=== PATIENT | female | born 1980 | race Caucasian/White ===

== ENCOUNTER 2016-10-28 14:33 | Emergency (ER) | payer MEDICARE, OTHER ==
[~2016-10-28] VITALS: Wt 99.8 kg
[~2016-10-28 14:33] MED LIST: ACETAMINOPHEN-O1 TAB PO; ACYCLOVIR800 MG PO; ALPRAZOLAM2 MG PO; AMBIEN10 M1 PO; AMITRIPTYLINE25 MG PO; ANAPROX DS550 MG PO; B12,B-12,B 12500 MC1 PO; BACTRIM DS 8001 TA1 PO; BACTRIM DS 8001 TAB PO; BACTROBAN OINT22 GM PO; BUSPAR5 MG PO; CELEXA10 MG PO; CELEXA40 MG PO; CEPHALEXIN500 M1 PO; CIPROFLOXACIN500 MG PO; CLARITIN10 MG PO; CLEOCIN HCL150 MG PO; CLEOCIN150 MG PO; CLINDAMYCIN HC300 MG PO; CLINDAMYCIN150 MG PO; CYCLOBENZAPRINE10 MG PO; DARVOCET N 1001 TAB PO; DAYPRO600 M1 PO; FANAPT12 MG PO; FIORICET 325 MG1 TAB PO; FLEXERIL10 MG PO; FLEXERIL5 MG PO; FLONASE ALLERG9.9 ML NAS; FLONASE ALLERG9.9 ML NS; Fioricet 325 MG1 TAB PO; HYCODAN/HYDROMET5 ML PO; HYDROCODONE BIT1 T11 PO; IMITREX50 MG PO; IMITREX50 MG SC; K-Lor 20MEQ20 MEQ PO; LAMICTAL200 MG PO; LAMICTAL25 MG PO; LASIX40 MG PO; LEVOFLOXACIN500 MG PO; LOMOTIL 0.025 M1 TAB PO; MEDROL DOSEPAK4 MG PO; MIGRAINE MEDICINE PO; MOTRIN800 MG PO; Motrin,Rufen800 MG PO; NAPROSYN500 MG PO; NEURONTIN300 MG PO; NEXIUM40 MG PO; OXYCODONE5 MG PO; PANTOPRAZOLE SO40 MG PO; PERCOCET 325 MG1 TA2 PO; PERCOCET 325 MG1 TA5 PO; PERCOGESIC EXTR1 TAB PO; PERIDEX 480 ML480 ML PO; PHENERGAN25 M1 PO; PHENERGAN25 M3 PO; PHENERGAN25 MG RC; PREDNISONE10 MG PO; PREDNISONE20 MG PO; PRISTIQ100 MG PO; PRISTIQ50 MG PO; PROVENTIL0.09 MG/A1 INH; Percocet 325 MG1 TAB PO; Peridex 473 ML473 ML PO; REXULTI2 MG PO; ROBITUSSIN AC 110 ML PO; SEPTRA DS 800 M1 TAB PO; Synthroid,Levo75 MCG PO; TOPAMAX100 M1 PO; TOPAMAX100 MG PO; TOPAMAX200 MG PO; TORADOL10 MG PO; ULTRAM50 MG PO; VIBRAMYCIN100 MG PO; VICODIN 5/500 505 MG PO; VIIBRYD40 PO; VOLTAREN50 M1 PO; XANAX2 M1 PO; XANAX2 MG PO; ZANAFLEX4 MG PO; ZITHROMAX Z PA250 MG PO; ZITHROMAX250 MG PO; ZOFRAN ODT4 MG SL; ZOFRAN4 MG PO; ZYRTEC10 MG PO; [UNRECOGNIZED DRUG - CODE] PO; [UNRECOGNIZED DRUG - OTHER] PO
[2016-10-28 14:46] VITALS: BP 130/79
== END 2016-10-28 17:25 | disposition home or self-care (01) ==
LOC: ED 14:33
DX: S00.83XA Contusion of other part of head, initial encounter (principal); Z88.1 Allergy status to other antibiotic agents; Z88.8 Allergy status to other drugs, medicaments and biological substances; Z90.49 Acquired absence of other specified parts of digestive tract; Z79.899 Other long term (current) drug therapy

== ENCOUNTER 2017-05-30 12:48 | Emergency (ER) | payer MEDICARE ==
[~2017-05-30] VITALS: Wt 122.5 kg
[2017-05-30 12:50] VITALS: BP 140/92
[2017-05-30 14:10] LABS: BASO % 0.6 % (0.0-1.0); EOS # 0.1 10*3/uL (0.0-0.4); EOS % 1.5 % (1.0-4.0); HEMATOCRIT 42.4 % (37.0-47.0); HEMOGLOBIN 14.3 g/dl (12.0-16.0); LYMPH # 1.8 10*3/uL (1.3-4.4); MEAN CELL VOLUME 87.8 fl (81.0-99.0); MEAN CORPUSCULAR HGB 29.6 pg (27.0-31.0); MEAN CORPUSCULAR HGB CONC 33.7 g/dl (33.0-37.0); MONO # 0.2 10*3/uL (0.1-1.0); MONO % 4.9 % (3.0-9.0); NEUT # 2.6 10*3/uL (2.3-7.9); NEUT % 54.8 % (47.0-73.0); PLATELET COUNT AUTOMATED 200 10*3/uL (130-400); RED BLOOD COUNT 4.83 10*6/uL (4.10-5.10); RED CELL DISTRI WIDTH 12.3 % (0-14.5); WHITE BLOOD COUNT 4.7 10*3/uL (4.8-10.8)
[2017-05-30 14:25] LABS: ALBUMIN 3.5 gm/dl (3.1-4.5); ALKALINE PHOSPHATASE 45 U/L (45-117); BUN 7 mg/dl (7-24); CHLORIDE 107 mmol/L (98-107); CREATININE 0.71 mg/dL (0.55-1.02); SGOT/AST 15 IU/L (3-35); SGPT/ALT 19 U/L (12-78); SODIUM 141 mmol/L (136-145); TOTAL PROTEIN 7.2 gm/dL (6.4-8.2)
[2017-05-30 14:26] LABS: BILIRUBIN NEGATIVE (NEGATIVE); BLOOD 3+ (NEGATIVE); CLARITY SL CLOUDY (CLEAR); COLOR YELLOW (YELLOW); GLUCOSE NEGATIVE (NEGATIVE); KETONE NEGATIVE (NEGATIVE); LEUKO ESTERASE TRACE (NEGATIVE); NITRITE NEGATIVE (NEGATIVE); PH 5.5 (5.0-9.0); SPECIFIC GRAVITY 1.015 (1.005-1.030); UROBILINOGEN 0.2 E.U./dl (0.2-1.0)
[2017-05-30 14:36] LABS: BACTERIA TRACE
== END 2017-05-30 17:00 | disposition home or self-care (01) ==
LOC: ED 12:48
PROVIDERS: Emergency Medicine
DX: O20.0 Threatened abortion (principal); G89.29 Other chronic pain; I10 Essential (primary) hypertension; E03.9 Hypothyroidism, unspecified; Z86.718 Personal history of other venous thrombosis and embolism; Z88.1 Allergy status to other antibiotic agents; Z88.4 Allergy status to anesthetic agent; Z88.8 Allergy status to other drugs, medicaments and biological substances; Z79.899 Other long term (current) drug therapy; Z3A.08 8 weeks gestation of pregnancy; Z90.49 Acquired absence of other specified parts of digestive tract; Z98.890 Other specified postprocedural states

== ENCOUNTER 2017-06-08 11:02 | Emergency (ER) | payer MEDICARE ==
[~2017-06-08] VITALS: Ht 157.4 cm; Wt 108.9 kg
[2017-06-08 11:14] VITALS: BP 134/98
[2017-06-08] MEDS ORDERED: PREDNISONE10 MG PO (11:40)
[2017-06-08] MEDS ORDERED: CLARITIN10 MG PO (11:40)
[2017-06-08] MEDS ORDERED: FLONASE ALLERG9.9 ML NAS (11:40)
[2017-06-08] MEDS ORDERED: ROBITUSSIN DM 105 ML PO (11:40)
== END 2017-06-08 13:05 | disposition home or self-care (01) ==
LOC: ED 11:02
DX: O26.899 Other specified pregnancy related conditions, unspecified trimester (principal); B34.9 Viral infection, unspecified; I10 Essential (primary) hypertension; E03.9 Hypothyroidism, unspecified; Z88.1 Allergy status to other antibiotic agents; Z88.8 Allergy status to other drugs, medicaments and biological substances; Z79.899 Other long term (current) drug therapy; Z86.718 Personal history of other venous thrombosis and embolism

== ENCOUNTER 2017-12-12 17:30 | Emergency (ER) | payer OTHER ==
[~2017-12-12] VITALS: Wt 122.5 kg
[~2017-12-12 17:30] MED LIST changes: +ROBITUSSIN DM 105 ML PO
[2017-12-12 18:21] LABS: BASO % 0.5 % (0.0-1.0); EOS # 0.2 10*3/uL (0.0-0.4); EOS % 2.6 % (1.0-4.0); HEMATOCRIT 41.3 % (37.0-47.0); HEMOGLOBIN 13.9 g/dl (12.0-16.0); LYMPH # 2.3 10*3/uL (1.3-4.4); LYMPH % 37.6 % (27.0-41.0); MEAN CELL VOLUME 84.8 fl (81.0-99.0); MEAN CORPUSCULAR HGB 28.5 pg (27.0-31.0); MEAN CORPUSCULAR HGB CONC 33.7 g/dl (33.0-37.0); MEAN PLATELET VOLUME 10.2 fl (9.6-12.3); MONO # 0.4 10*3/uL (0.1-1.0); MONO % 5.9 % (3.0-9.0); NEUT # 3.3 10*3/uL (2.3-7.9); NEUT % 52.9 % (47.0-73.0); PLATELET COUNT AUTOMATED 244 10*3/uL (130-400); RED BLOOD COUNT 4.87 10*6/uL (4.10-5.10); RED CELL DISTRI WIDTH 12.5 % (0-14.5); WHITE BLOOD COUNT 6.1 10*3/uL (4.8-10.8)
[2017-12-12 18:38] LABS: ALBUMIN 3.6 gm/dl (3.1-4.5); ALKALINE PHOSPHATASE 83 U/L (45-117); BUN 9 mg/dl (7-24); CHLORIDE 112 mmol/L (98-107); CREATININE 1.03 mg/dL (0.55-1.02); POTASSIUM 3.9 mmol/L (3.5-5.1); SGOT/AST 19 IU/L (3-35); SGPT/ALT 23 U/L (12-78); SODIUM 142 mmol/L (136-145); TOTAL PROTEIN 7.3 gm/dL (6.4-8.2)
[2017-12-12 18:43] LABS: BETA-HCG, QUANT < 1.0 mIU/mL (1-3)
[2017-12-12 19:55] VITALS: BP 146/70
== END 2017-12-12 20:54 | disposition home or self-care (01) ==
LOC: ED 17:30
PROVIDERS: Emergency Medicine
DX: M54.12 Radiculopathy, cervical region (principal); I10 Essential (primary) hypertension; E03.9 Hypothyroidism, unspecified; Z88.1 Allergy status to other antibiotic agents; Z88.6 Allergy status to analgesic agent; Z88.8 Allergy status to other drugs, medicaments and biological substances; Z79.899 Other long term (current) drug therapy; Z86.718 Personal history of other venous thrombosis and embolism

== ENCOUNTER 2018-01-12 10:56 | Emergency (ER) | payer OTHER ==
[~2018-01-12] VITALS: Ht 157.4 cm; Wt 122.5 kg
[2018-01-12 12:01] LABS: BASO % 0.4 % (0.0-1.0); EOS # 0.1 10*3/uL (0.0-0.4); EOS % 1.8 % (1.0-4.0); HEMATOCRIT 45.9 % (37.0-47.0); HEMOGLOBIN 15.6 g/dl (12.0-16.0); LYMPH # 2.1 10*3/uL (1.3-4.4); LYMPH % 30.8 % (27.0-41.0); MEAN CELL VOLUME 84.5 fl (81.0-99.0); MEAN CORPUSCULAR HGB 28.7 pg (27.0-31.0); MEAN PLATELET VOLUME 10.8 fl (9.6-12.3); MONO # 0.4 10*3/uL (0.1-1.0); MONO % 5.7 % (3.0-9.0); NEUT # 4.1 10*3/uL (2.3-7.9); PLATELET COUNT AUTOMATED 272 10*3/uL (130-400); RED BLOOD COUNT 5.43 10*6/uL (4.10-5.10); RED CELL DISTRI WIDTH 12.4 % (0-14.5); WHITE BLOOD COUNT 6.7 10*3/uL (4.8-10.8)
[2018-01-12 13:11] LABS: ALBUMIN 3.6 gm/dl (3.1-4.5); ALKALINE PHOSPHATASE 149 U/L (45-117); BUN 10 mg/dl (7-24); CHLORIDE 105 mmol/L (98-107); CREATININE 0.78 mg/dL (0.55-1.02); LIPASE 89 U/L (73-393); POTASSIUM 3.7 mmol/L (3.5-5.1); SGOT/AST 28 IU/L (3-35); SGPT/ALT 34 U/L (12-78); SODIUM 139 mmol/L (136-145); TOTAL PROTEIN 7.6 gm/dL (6.4-8.2)
[2018-01-12 13:28] VITALS: BP 153/99
[2018-01-12 13:28] LABS: BILIRUBIN 2+ (NEGATIVE); BLOOD NEGATIVE (NEGATIVE); CLARITY CLOUDY (CLEAR); COLOR YELLOW (YELLOW); GLUCOSE NEGATIVE (NEGATIVE); KETONE 1+ (NEGATIVE); LEUKO ESTERASE NEGATIVE (NEGATIVE); NITRITE NEGATIVE (NEGATIVE); SPECIFIC GRAVITY 1.025 (1.005-1.030); UROBILINOGEN 0.2 E.U./dl (0.2-1.0)
[2018-01-12 13:44] LABS: BACTERIA 3+; EPITHELIAL CELLS 20-30
== END 2018-01-12 14:15 | disposition home or self-care (01) ==
LOC: ED 10:56
PROVIDERS: Physician Assistant
DX: R53.83 Other fatigue (principal); R11.2 Nausea with vomiting, unspecified; Z90.49 Acquired absence of other specified parts of digestive tract; Z98.890 Other specified postprocedural states; Z79.899 Other long term (current) drug therapy; Z88.1 Allergy status to other antibiotic agents; Z88.8 Allergy status to other drugs, medicaments and biological substances

== ENCOUNTER 2018-04-17 17:59 | Emergency (ER) | payer OTHER ==
[~2018-04-17] VITALS: Ht 157.4 cm; Wt 126.1 kg
[~2018-04-17 17:59] MED LIST changes: +MIRALAX17 GM PO
[2018-04-17 18:19] VITALS: BP 156/88
[2018-04-17 18:58] LABS: BASO % 0.5 % (0.0-1.0); EOS # 0.2 10*3/uL (0.0-0.4); EOS % 3.8 % (1.0-4.0); HEMATOCRIT 39.5 % (37.0-47.0); HEMOGLOBIN 13.1 g/dl (12.0-16.0); LYMPH # 2.2 10*3/uL (1.3-4.4); LYMPH % 40.1 % (27.0-41.0); MEAN CELL VOLUME 87.6 fl (81.0-99.0); MEAN CORPUSCULAR HGB CONC 33.2 g/dl (33.0-37.0); MEAN PLATELET VOLUME 10.1 fl (9.6-12.3); MONO # 0.3 10*3/uL (0.1-1.0); MONO % 5.2 % (3.0-9.0); NEUT # 2.8 10*3/uL (2.3-7.9); NEUT % 50.2 % (47.0-73.0); PLATELET COUNT AUTOMATED 227 10*3/uL (130-400); RED BLOOD COUNT 4.51 10*6/uL (4.10-5.10); RED CELL DISTRI WIDTH 12.9 % (0-14.5); WHITE BLOOD COUNT 5.5 10*3/uL (4.8-10.8)
[2018-04-17 19:12] LABS: ALBUMIN 3.6 gm/dl (3.1-4.5); ALKALINE PHOSPHATASE 399 U/L (45-117); BUN 7 mg/dl (7-24); CHLORIDE 106 mmol/L (98-107); CREATININE 0.76 mg/dL (0.55-1.02); POTASSIUM 3.5 mmol/L (3.5-5.1); SGOT/AST 51 IU/L (3-35); SGPT/ALT 81 U/L (12-78); SODIUM 142 mmol/L (136-145); TOTAL PROTEIN 7.6 gm/dL (6.4-8.2)
[2018-04-17] MEDS ORDERED: SEPTDS PO (19:32)
== END 2018-04-17 19:39 | disposition home or self-care (01) ==
LOC: ED 17:59
PROVIDERS: Nurse Practitioner Family
DX: S31.109A Unspecified open wound of abdominal wall, unspecified quadrant without penetration into peritoneal cavity, initial encounter (principal); R21 Rash and other nonspecific skin eruption; Z88.1 Allergy status to other antibiotic agents; Z88.8 Allergy status to other drugs, medicaments and biological substances; Z79.899 Other long term (current) drug therapy; Z90.49 Acquired absence of other specified parts of digestive tract; X58.XXXA Exposure to other specified factors, initial encounter; Y93.89 Activity, other specified; Y92.89 Other specified places as the place of occurrence of the external cause; Y99.8 Other external cause status

== ENCOUNTER 2018-05-01 14:15 | Emergency (ER) | payer OTHER ==
[~2018-05-01] VITALS: Ht 157.4 cm; Wt 122.5 kg
[~2018-05-01 14:15] MED LIST changes: +SEPTDS PO
[2018-05-01 15:12] LABS: BASO % 0.5 % (0.0-1.0); EOS % 0.5 % (1.0-4.0); HEMATOCRIT 46.9 % (37.0-47.0); HEMOGLOBIN 16.3 g/dl (12.0-16.0); LYMPH # 2.3 10*3/uL (1.3-4.4); LYMPH % 29.9 % (27.0-41.0); MEAN CORPUSCULAR HGB 28.5 pg (27.0-31.0); MEAN CORPUSCULAR HGB CONC 34.8 g/dl (33.0-37.0); MEAN PLATELET VOLUME 10.1 fl (9.6-12.3); MONO # 0.4 10*3/uL (0.1-1.0); MONO % 5.6 % (3.0-9.0); NEUT # 4.8 10*3/uL (2.3-7.9); NEUT % 63.1 % (47.0-73.0); PLATELET COUNT AUTOMATED 289 10*3/uL (130-400); RED BLOOD COUNT 5.72 10*6/uL (4.10-5.10); RED CELL DISTRI WIDTH 12.6 % (0-14.5); WHITE BLOOD COUNT 7.6 10*3/uL (4.8-10.8)
[2018-05-01 15:31] LABS: ALBUMIN 4.1 gm/dl (3.1-4.5); ALKALINE PHOSPHATASE 164 U/L (45-117); BUN 10 mg/dl (7-24); CHLORIDE 106 mmol/L (98-107); CREATININE 0.71 mg/dL (0.55-1.02); LIPASE 103 U/L (73-393); POTASSIUM 3.3 mmol/L (3.5-5.1); SGOT/AST 26 IU/L (3-35); SGPT/ALT 28 U/L (12-78); SODIUM 139 mmol/L (136-145); TOTAL PROTEIN 8.3 gm/dL (6.4-8.2)
[2018-05-01 16:20] VITALS: BP 150/92
[2018-05-01] MEDS ORDERED: ZOFRAN ODT4 MG SL (17:59)
== END 2018-05-01 18:11 | disposition home or self-care (01) ==
LOC: ED 14:15
PROVIDERS: Nurse Practitioner Family
DX: K31.84 Gastroparesis (principal); I10 Essential (primary) hypertension; E03.9 Hypothyroidism, unspecified; Z88.1 Allergy status to other antibiotic agents; Z88.8 Allergy status to other drugs, medicaments and biological substances; Z79.899 Other long term (current) drug therapy; Z86.718 Personal history of other venous thrombosis and embolism; Z90.49 Acquired absence of other specified parts of digestive tract; Z90.89 Acquired absence of other organs

== ENCOUNTER 2018-07-31 13:38 | Emergency (ER) | payer OTHER ==
[~2018-07-31] VITALS: Ht 157.4 cm; Wt 108.9 kg
[2018-07-31] MEDS ORDERED: ZOFRAN4 MG PO (14:18)
[2018-07-31 14:26] LABS: BASO % 0.4 % (0.0-1.0); EOS % 0.3 % (1.0-4.0); HEMOGLOBIN 14.7 g/dl (12.0-16.0); LYMPH # 1.8 10*3/uL (1.3-4.4); LYMPH % 23.5 % (27.0-41.0); MEAN CELL VOLUME 86.1 fl (81.0-99.0); MEAN CORPUSCULAR HGB 28.8 pg (27.0-31.0); MEAN CORPUSCULAR HGB CONC 33.4 g/dl (33.0-37.0); MEAN PLATELET VOLUME 10.1 fl (9.6-12.3); MONO # 0.3 10*3/uL (0.1-1.0); MONO % 4.2 % (3.0-9.0); NEUT # 5.5 10*3/uL (2.3-7.9); NEUT % 71.2 % (47.0-73.0); PLATELET COUNT AUTOMATED 271 10*3/uL (130-400); RED BLOOD COUNT 5.11 10*6/uL (4.10-5.10); RED CELL DISTRI WIDTH 12.3 % (0-14.5); WHITE BLOOD COUNT 7.7 10*3/uL (4.8-10.8)
[2018-07-31 14:45] LABS: ALBUMIN 3.8 gm/dl (3.1-4.5); ALKALINE PHOSPHATASE 67 U/L (45-117); BUN 6 mg/dl (7-24); CHLORIDE 108 mmol/L (98-107); CREATININE 0.87 mg/dL (0.55-1.02); LIPASE 52 U/L (73-393); POTASSIUM 3.5 mmol/L (3.5-5.1); SGOT/AST 15 IU/L (3-35); SGPT/ALT 18 U/L (12-78); SODIUM 142 mmol/L (136-145); TOTAL PROTEIN 7.8 gm/dL (6.4-8.2)
[2018-07-31 15:27] VITALS: BP 128/83
[2018-08-01] MEDS ORDERED: 'CLONIDINE0.1 MG PO (12:10)
[2018-08-09] MEDS ORDERED: REGLAN5 MG PO (09:52)
[2018-08-09] MEDS ORDERED: CARAFATE1 G1 PO (09:53)
[2018-08-09] MEDS ORDERED: GAVISCON ES TA1 EACH PO (09:53)
== END 2018-07-31 15:38 | disposition home or self-care (01) ==
LOC: ED 13:38
PROVIDERS: Nurse Practitioner Family
DX: R10.84 Generalized abdominal pain (principal); R11.2 Nausea with vomiting, unspecified; I10 Essential (primary) hypertension; E03.9 Hypothyroidism, unspecified; Z88.1 Allergy status to other antibiotic agents; Z88.8 Allergy status to other drugs, medicaments and biological substances; Z79.899 Other long term (current) drug therapy; Z86.718 Personal history of other venous thrombosis and embolism

== ENCOUNTER 2018-08-01 08:41 | Inpatient (IN) | payer OTHER ==
[2018-08-01] VITALS (10 sets, daily range): BP systolic 166–212; BP diastolic 97–114
[~2018-08-01] VITALS: Ht 157.5 cm; Wt 117.1 kg
--- NOTE | ~2018-08-01 | EKG ---
[place], [place] ELECTROCARDIOGRAM REPORT NAME: ANGELINA LAKHANI UNIT #: [id number] ROOM: 407 DOCTOR: MICHAEL DRAFT REPORT BIRTHDATE: [birth year] [facility] Test Date: 2018-08-01 Test Time: 09:32:29 Pat Name: ANGELINA LAKHANI Department: Room: 407 1 Gender: F Obstetrics Specialist: 14 : 1980 Requested By: TATYANA ROJAS Order Number: [id number] Reading MD: Ariel Ramachandran MD Measurements Intervals [place] Rate: 64 P: 22 OK: 135 QRS: 0 QRSD: 83 T: 11 QT: 480 QTc: 496 Interpretive Statements Sinus rhythm LVH by voltage Borderline prolonged QT interval Compared to ECG 03/31/2018 16:22:29 No significant changes Electronically Signed On 08-02-2018 9:28:51 PST by Ariel Ramachandran MD CM:EKGRPT:ELECTROCARDIOGRAM REPORT 1 7 TATYANA HANKS DRAFT REPORT TATYANA ROJAS DO
[2018-08-01 09:55] LABS: BASO % 0.4 % (0.0-1.0); HEMATOCRIT 45.6 % (37.0-47.0); HEMOGLOBIN 15.4 g/dl (12.0-16.0); LYMPH # 2.5 10*3/uL (1.3-4.4); LYMPH % 24.9 % (27.0-41.0); MEAN CELL VOLUME 85.9 fl (81.0-99.0); MEAN CORPUSCULAR HGB CONC 33.8 g/dl (33.0-37.0); MEAN PLATELET VOLUME 10.6 fl (9.6-12.3); MONO # 0.5 10*3/uL (0.1-1.0); MONO % 4.7 % (3.0-9.0); NEUT # 6.9 10*3/uL (2.3-7.9); NEUT % 69.7 % (47.0-73.0); PLATELET COUNT AUTOMATED 293 10*3/uL (130-400); RED BLOOD COUNT 5.31 10*6/uL (4.10-5.10); RED CELL DISTRI WIDTH 12.6 % (0-14.5); WHITE BLOOD COUNT 9.9 10*3/uL (4.8-10.8)
[2018-08-01 10:04] LABS: ACT PARTIAL THROMBO TIME 23.5 SECONDS (20.8-31.5); INTERNATIONAL NORM RATIO 1.1 (2.0-3.5)
[2018-08-01 10:13] LABS: ALKALINE PHOSPHATASE 64 U/L (45-117); BUN 10 mg/dl (7-24); CHLORIDE 106 mmol/L (98-107); CREATININE 1.33 mg/dL (0.55-1.02); LIPASE 45 U/L (73-393); SGOT/AST 17 IU/L (3-35); SGPT/ALT 19 U/L (12-78); SODIUM 141 mmol/L (136-145); TOTAL PROTEIN 8.1 gm/dL (6.4-8.2); TROPONIN I < 0.015 ng/ml (<0.045)
--- NOTE | 2018-08-01 11:40 | NUR ---
A 37, admitted to , under the services of ANDRÉS Frazier DO with a diagnosis of hypertensive emergency. Chief complaint is nausea and vomiting for 4 days. Seen in ED yesterday and sent home on zofran. She stated it had not been helping and she has been vomiting bright red blood today. she has epigastric pain, no diarrhea. Blood pressure is high and hasn't taken her medications in several days.. Patient arrived via wheel chair from ER. Monitor applied. Initial assessment completed. Vital signs taken and recorded. ANDRÉS FRAZIER DO notified of admission to the unit. Orders received. See assessment for past medical history, medications and allergies. Patient and/or family oriented to unit. [facility] visitation policy reviewed. Clothing/patient valuable form completed. LILLIAN BLAIR
[2018-08-01 11:55] LABS: BETA-HCG, QUANT < 1.0 mIU/mL (1-3)
[2018-08-01] MEDS ORDERED: 'CLONIDINE0.1 MG PO (12:10)
--- NOTE | 2018-08-01 12:43 | NUR ---
NOTIFIED DR PARIS OF CONSULT. ORDER OBTAINED FOR IV POTASSIUM.
--- NOTE | 2018-08-01 12:54 | NUR ---
NORCO GIVEN FOR 9 OUT OF 10 STOMACH PAIN. ZOFRAN GIVEN FOR COMPLAINTS OF NAUSEA. WILL CONTINUE TO MONITOR AND REASSESS.
--- NOTE | 2018-08-01 13:30 | NUR ---
NORCO EFFECTIVE FOR ABDOMINAL PAIN. NOW 4 OUT OF 10. WILL CONTINUE TO MONITOR. ZOFRAN EFFECTIVE FOR NAUSEA AT THIS TIME. WILL CONTINUE TO MONITOR.
--- NOTE | 2018-08-01 17:17 | NUR ---
NORCO GIVEN FOR 8 OUT OF TEN PAIN IN HEAD. WILL ASSESS EFFECTIVENESS.
--- NOTE | 2018-08-01 18:00 | NUR ---
NORCO EFFECTIVE FOR HEADACHE. PT STATES PAIN IS 6 OUT OF 10 NOW. WILL CONTINUE TO ASSESS.
[2018-08-02] VITALS (7 sets, daily range): BP systolic 130–190; BP diastolic 61–132
[2018-08-02 06:21] LABS: BASO % 0.4 % (0.0-1.0); EOS # 0.1 10*3/uL (0.0-0.4); EOS % 0.5 % (1.0-4.0); HEMATOCRIT 44.1 % (37.0-47.0); HEMOGLOBIN 14.9 g/dl (12.0-16.0); LYMPH # 3.3 10*3/uL (1.3-4.4); LYMPH % 34.3 % (27.0-41.0); MEAN CELL VOLUME 85.8 fl (81.0-99.0); MEAN CORPUSCULAR HGB CONC 33.8 g/dl (33.0-37.0); MEAN PLATELET VOLUME 10.3 fl (9.6-12.3); MONO # 0.5 10*3/uL (0.1-1.0); MONO % 5.3 % (3.0-9.0); NEUT # 5.7 10*3/uL (2.3-7.9); NEUT % 59.3 % (47.0-73.0); PLATELET COUNT AUTOMATED 271 10*3/uL (130-400); RED BLOOD COUNT 5.14 10*6/uL (4.10-5.10); RED CELL DISTRI WIDTH 12.3 % (0-14.5); WHITE BLOOD COUNT 9.6 10*3/uL (4.8-10.8)
[2018-08-02 06:30] LABS: ALBUMIN 3.2 gm/dl (3.1-4.5); ALKALINE PHOSPHATASE 56 U/L (45-117); BUN 7 mg/dl (7-24); CHLORIDE 106 mmol/L (98-107); CHOLESTEROL 217 mg/dL (<200); CREATININE 0.69 mg/dL (0.55-1.02); FREE T4 1.03 ng/dl (0.76-1.46); HDL CHOLESTEROL 75 mg/dl (40-60); LDL CHOLESTEROL 125 mg/dL (9-159); PHOSPHOROUS 2.6 mg/dL (2.5-4.9); POTASSIUM 3.5 mmol/L (3.5-5.1); SGPT/ALT 17 U/L (12-78); SODIUM 137 mmol/L (136-145); TOTAL PROTEIN 7.2 gm/dL (6.4-8.2); TRIGLYCERIDES 87 mg/dl (<150); VLDL CHOLESTEROL 17 mg/dL (6-40)
[2018-08-02 06:31] LABS: SGOT/AST 16 IU/L (3-35)
[2018-08-02 07:47] LABS: VITAMIN D, 25-HYDROXY 17.1 ng/mL (30-100)
--- NOTE | 2018-08-02 08:41 | NUR ---
[place] given per patient request for abdominal pain and zofran given for c/o nauseated.
--- NOTE | 2018-08-02 09:00 | NUR ---
Branch Coordinator in to talk to patient. Patient states lives at home with family. There are few steps in the home. Physician: emily Pharmacy: [facility] Home health services: none Patient's level of ADLs: INDEPENDENT Patient has working utilities: all working DME: none Follow-up physician's appointment after d/c: will be made by hospitalist nurse director upon discharge Does patient want to access PORTAL?: no Discharge plan discussed with patient, patient lives at home, she is independent in adls and ambulation, patient states she will be going home when able and denies any home needs. DOROTEO DEWITT
--- NOTE | 2018-08-02 09:08 | NUR ---
Face to face encounter with Dr. Pulido to notify him of patients elevated blood pressure. Will follow up, see vitals.
--- NOTE | 2018-08-02 09:15 | NUR ---
Berta effective and patient states shlomo helped.
--- NOTE | 2018-08-02 10:15 | NUR ---
SONA DB=[id number], PT NURSE CHARLI-RN INFORMED.
--- NOTE | 2018-08-02 11:46 | NUR ---
Notified Dr. Pulido of patients blood pressure. See vitals.
--- NOTE | 2018-08-02 14:20 | NUR ---
Spoke with Dr. Pulido regarding elevated blood pressure. See new orders.
--- NOTE | 2018-08-02 15:33 | NUR ---
[place] given per patient request for abdominal pain and zofran given for c/o nausea. Will monitor.
--- NOTE | 2018-08-02 16:15 | NUR ---
[place] effective. "Zofran helps a little" states patient.
--- NOTE | 2018-08-02 17:38 | NUR ---
Spoke with Dr. Pulido regarding patients blood pressure. See vitals.
--- NOTE | 2018-08-02 18:20 | NUR ---
Notified Dr. Pulido that I aknowledged the order to d/c fluids but it actually didn't take place until 1814.
--- NOTE | 2018-08-02 18:43 | NUR ---
Called Dr. Pulido because patient came to me and said "I get nauseated everytime I eat." Per Dr. Pulido contact Dr. Easley.
--- NOTE | 2018-08-02 18:54 | NUR ---
Left a message with Dr. Easley to return call to
--- NOTE | 2018-08-02 22:20 | NUR ---
PATIENT MEDICATED WITH ZOFRAN, RESTORIL AND NORCO PER PRN ORDER FOR C/O NAUSEA, INSOMNIA AND PAIN. SEE EMAR. REINFORCED USE OF CALL LIGHT.
[2018-08-03] VITALS: BP 119/53
--- NOTE | 2018-08-03 01:00 | NUR ---
PATIENT RESTING QUIETLY. NO FURTHER C/O VOICED.
--- NOTE | 2018-08-03 01:20 | NUR ---
24 HR chart check completed.
--- NOTE | 2018-08-03 06:14 | NUR ---
RETURNED CALL. NOTIFIED DR. PARIS OF REASON DR. DODD WANTED HIM CALLED .
[2018-08-03 07:35] LABS: ALBUMIN 3.7 gm/dl (3.1-4.5); BUN 7 mg/dl (7-24); CHLORIDE 105 mmol/L (98-107); POTASSIUM 3.4 mmol/L (3.5-5.1); SGOT/AST 17 IU/L (3-35); SGPT/ALT 21 U/L (12-78); SODIUM 139 mmol/L (136-145)
[2018-08-03 07:36] LABS: ALKALINE PHOSPHATASE 56 U/L (45-117); TOTAL PROTEIN 7.6 gm/dL (6.4-8.2)
[2018-08-03 08:44] VITALS: BP 126/82
--- NOTE | 2018-08-03 08:56 | NUR ---
Awake and alert. Medicated for pain and nausea.
--- NOTE | 2018-08-03 09:00 | NUR ---
case management visits with patient, patient will be going home when able, patient denies any home needs
--- NOTE | 2018-08-03 09:45 | NUR ---
Pain and nausea relieved. Up and about in room and carroll.
[2018-08-03 12:00] VITALS: BP 124/62
--- NOTE | 2018-08-03 12:25 | NUR ---
Out to desk w/ question as to discharge. States EGD is scheduled as OP on 08/09 OR was called and stated that pt. is on the schedule for next week. Dr. Pulido was called w/ pt. concern. Awaiting Dr. Kaushal cochran his consultation at this time.
[2018-08-03] MEDS ORDERED: PROTONIX40 MG PO (13:44)
[2018-08-03] MEDS ORDERED: HYDR25T PO (13:44)
[2018-08-03] MEDS ORDERED: ZOFRAN4 MG PO (13:44)
[2018-08-03] MEDS ORDERED: AMLODIPINE BESYL5 MG PO (13:44)
[2018-08-03] MEDS ORDERED: REGLAN5 MG PO (13:44)
--- NOTE | 2018-08-03 14:30 | NUR ---
FILI dc'd . EGD confirmed w/ Keri in surgery. Discharge instruction given. Voiced understanding. Awaiting transportation for departure.
--- NOTE | 2018-08-03 14:47 | NUR ---
Discharged to home , ambulatory out w/ family.
[2018-08-09] MEDS ORDERED: REGLAN5 MG PO (09:52)
[2018-08-09] MEDS ORDERED: GAVISCON ES TA1 EACH PO (09:53)
[2018-08-09] MEDS ORDERED: CARAFATE1 G1 PO (09:53)
== END 2018-08-03 14:45 | disposition home or self-care (01) | DRG 377 ==
LOC: ED 08:41 → 4E 11:22
PROVIDERS: Emergency Medicine; Internal Medicine; ADMIT Internal Medicine
DX: K29.71 Gastritis, unspecified, with bleeding (principal); N17.0 Acute kidney failure with tubular necrosis; I16.1 Hypertensive emergency; E87.2 Acidosis; E87.6 Hypokalemia; K31.84 Gastroparesis; R73.9 Hyperglycemia, unspecified; E03.9 Hypothyroidism, unspecified; G89.29 Other chronic pain; I10 Essential (primary) hypertension; M25.569 Pain in unspecified knee; E83.41 Hypermagnesemia; K57.90 Diverticulosis of intestine, part unspecified, without perforation or abscess without bleeding; F32.9 Major depressive disorder, single episode, unspecified; Z86.718 Personal history of other venous thrombosis and embolism; Z90.49 Acquired absence of other specified parts of digestive tract; Z80.1 Family history of malignant neoplasm of trachea, bronchus and lung; Z88.1 Allergy status to other antibiotic agents; Z88.8 Allergy status to other drugs, medicaments and biological substances; Z79.899 Other long term (current) drug therapy

== ENCOUNTER → 2018-08-09 | Day surgery (SDC) | payer OTHER ==
[~2018-08-09] VITALS: Ht 157.4 cm; Wt 97.5 kg
[~2018-08-09] MED LIST changes: +'CLONIDINE0.1 MG PO; +AMLODIPINE BESYL5 MG PO; +CARAFATE1 G1 PO; +GAVISCON ES TA1 EACH PO; +HYDR25T PO; +PROTONIX40 MG PO; +REGLAN5 MG PO
--- NOTE | ~2018-08-09 | O ---
[place], [place] OPERATIVE NOTE NAME: ANGELINA LAKHANI UNIT #: [id number] ROOM: DOCTOR: CELIA PARIS MD BIRTHDATE: [birth year] DOS: 08/09/2018 HISTORY OF PRESENT ILLNESS: A 37-year-old patient who presented with chief complaint of persistent emesis, epigastric distress, dyspepsia, undergoing investigation. The patient has had visits to Emergency Room. PROCEDURE: Today's procedure part of investigation is panendoscopy. PREMEDICATION: Propofol. SCOPE: Olympus forward-viewing gastroscope Q10 video. REPORT: After putting the patient in left lateral position and application of lubricant to the scope, the scope was introduced. Thereafter, under direct visualization, advanced through the length of esophagus without difficulty. Evidence of mild esophageal moniliasis was appreciated. Esophageal brush for fungal study undertaken. Gastric pouch was entered. Gastritis was seen, watermelon gastritis identified. Multiple erosions seen. Antral biopsy obtained. Duodenal bulb, second and third part within normal limits. The patient was gradually extubated and tolerated the procedure well. IMPRESSION: Watermelon gastritis and erosions, status post biopsy esophageal moniliasis, status post brush for fungal study. PLAN AND DISCUSSION: We are going to await fungal study because the degree of fungemia was very minimal. We are going to increase her Reglan to 5 mg a.m. and at bedtime. We are going to add Gaviscon Extra Strength 1 at bedtime. We are going to add sucralfate 1 gram 2 hours before meals 1 month. Continue with Protonix antireflux measure with elevation of the head of the bed 6 inch all time. We are going to check her radiologic records to assure that she has had sonographic or CT scan of the abdomen. Workup in progress. Thank you very much indeed for your kind referral. [place], [place] OPERATIVE NOTE NAME: ANGELINA LAKHANI [place] UNIT #: [id number] ROOM: DOCTOR: CELIA PARIS MD BIRTHDATE: [birth year] CELIA PARIS MD CM:OPRECORD:OPERATIVE NOTE [id number] CELIA PARIS MD 08/09/18 0959 interface
[2018-08-09 07:20] VITALS: BP 174/99
[2018-08-09 09:05] VITALS: BP 146/81
[2018-08-09 09:20] VITALS: BP 156/95
[2018-08-09 09:35] VITALS: BP 156/94
== END | disposition home or self-care (01) ==
LOC: SDC 08-03 14:00
DX: K29.50 Unspecified chronic gastritis without bleeding (principal); B37.81 Candidal esophagitis; K21.9 Gastro-esophageal reflux disease without esophagitis; I10 Essential (primary) hypertension; G43.909 Migraine, unspecified, not intractable, without status migrainosus; F41.9 Anxiety disorder, unspecified; F32.9 Major depressive disorder, single episode, unspecified; E66.9 Obesity, unspecified; F11.11 Opioid abuse, in remission; Z90.49 Acquired absence of other specified parts of digestive tract; Z88.8 Allergy status to other drugs, medicaments and biological substances; Z88.1 Allergy status to other antibiotic agents; Z79.899 Other long term (current) drug therapy; Z98.890 Other specified postprocedural states; Z68.39 Body mass index [BMI] 39.0-39.9, adult

== ENCOUNTER 2018-11-22 15:17 | Emergency (ER) | payer OTHER ==
[~2018-11-22] VITALS: Ht 157.4 cm; Wt 117.9 kg
[2018-11-22 15:18] VITALS: BP 153/96
== END 2018-11-22 17:13 | disposition home or self-care (01) ==
LOC: ED 15:17
DX: S16.1XXA Strain of muscle, fascia and tendon at neck level, initial encounter (principal); S09.90XA Unspecified injury of head, initial encounter; Z90.49 Acquired absence of other specified parts of digestive tract; Z88.1 Allergy status to other antibiotic agents; Z88.8 Allergy status to other drugs, medicaments and biological substances; Z79.899 Other long term (current) drug therapy; Y04.2XXA Assault by strike against or bumped into by another person, initial encounter; Y93.89 Activity, other specified; Y92.098 Other place in other non-institutional residence as the place of occurrence of the external cause; Y99.8 Other external cause status

== ENCOUNTER 2019-01-25 16:44 | Emergency (ER) | payer OTHER ==
[~2019-01-25] VITALS: Ht 157.4 cm; Wt 122.5 kg
[2019-01-25 16:47] VITALS: BP 149/107
[2019-01-25 19:03] LABS: BASO # 0.1 10*3/uL (0.0-0.1); BASO % 0.9 % (0.0-1.0); EOS # 0.2 10*3/uL (0.0-0.4); HEMATOCRIT 46.2 % (37.0-47.0); HEMOGLOBIN 15.3 g/dl (12.0-16.0); MEAN CELL VOLUME 87.7 fl (81.0-99.0); MEAN CORPUSCULAR HGB CONC 33.1 g/dl (33.0-37.0); MEAN PLATELET VOLUME 10.3 fl (9.6-12.3); MONO # 0.4 10*3/uL (0.1-1.0); MONO % 4.8 % (3.0-9.0); NEUT # 4.4 10*3/uL (2.3-7.9); NEUT % 55.2 % (47.0-73.0); PLATELET COUNT AUTOMATED 296 10*3/uL (130-400); RED BLOOD COUNT 5.27 10*6/uL (4.10-5.10); RED CELL DISTRI WIDTH 12.8 % (0-14.5)
[2019-01-25 19:17] LABS: ALKALINE PHOSPHATASE 71 U/L (45-117); BUN 9 mg/dl (7-24); CHLORIDE 109 mmol/L (98-107); CREATININE 0.87 mg/dL (0.55-1.02); POTASSIUM 3.9 mmol/L (3.5-5.1); SGOT/AST 14 IU/L (3-35); SGPT/ALT 20 U/L (12-78); SODIUM 140 mmol/L (136-145); TOTAL PROTEIN 8.2 gm/dL (6.4-8.2)
[2019-01-25] MEDS ORDERED: CLINDAMYCIN HC300 MG PO (19:39)
== END 2019-01-25 20:20 | disposition home or self-care (01) ==
LOC: ED 16:44
PROVIDERS: Nurse Practitioner Family
DX: K08.89 Other specified disorders of teeth and supporting structures (principal); R60.0 Localized edema; R20.0 Anesthesia of skin; G89.29 Other chronic pain; I10 Essential (primary) hypertension; E03.9 Hypothyroidism, unspecified; Z88.1 Allergy status to other antibiotic agents; Z88.8 Allergy status to other drugs, medicaments and biological substances; Z79.899 Other long term (current) drug therapy; Z86.718 Personal history of other venous thrombosis and embolism; Z90.49 Acquired absence of other specified parts of digestive tract

== ENCOUNTER 2019-02-11 17:32 | Emergency (ER) | payer OTHER ==
[~2019-02-11] VITALS: Ht 157.4 cm; Wt 122.5 kg
[2019-02-11 17:34] VITALS: BP 178/106
[2019-02-11 18:30] LABS: BILIRUBIN NEGATIVE (NEGATIVE); BLOOD NEGATIVE (NEGATIVE); CLARITY CLEAR (CLEAR); COLOR YELLOW (YELLOW); GLUCOSE NEGATIVE (NEGATIVE); KETONE NEGATIVE (NEGATIVE); LEUKO ESTERASE NEGATIVE (NEGATIVE); NITRITE NEGATIVE (NEGATIVE); UROBILINOGEN 0.2 E.U./dl (0.2-1.0)
[2019-02-11 18:31] LABS: BASO # 0.1 10*3/uL (0.0-0.1); BASO % 0.9 % (0.0-1.0); EOS # 0.2 10*3/uL (0.0-0.4); EOS % 3.4 % (1.0-4.0); HEMATOCRIT 40.8 % (37.0-47.0); HEMOGLOBIN 13.4 g/dl (12.0-16.0); LYMPH # 2.8 10*3/uL (1.3-4.4); MEAN CELL VOLUME 87.9 fl (81.0-99.0); MEAN CORPUSCULAR HGB 28.9 pg (27.0-31.0); MEAN CORPUSCULAR HGB CONC 32.8 g/dl (33.0-37.0); MEAN PLATELET VOLUME 10.7 fl (9.6-12.3); MONO # 0.3 10*3/uL (0.1-1.0); MONO % 4.2 % (3.0-9.0); NEUT # 3.5 10*3/uL (2.3-7.9); NEUT % 50.2 % (47.0-73.0); PLATELET COUNT AUTOMATED 228 10*3/uL (130-400); RED BLOOD COUNT 4.64 10*6/uL (4.10-5.10); RED CELL DISTRI WIDTH 13.2 % (0-14.5); WHITE BLOOD COUNT 6.9 10*3/uL (4.8-10.8)
[2019-02-11 18:45] LABS: ALBUMIN 3.5 gm/dl (3.1-4.5); ALKALINE PHOSPHATASE 117 U/L (45-117); BUN 8 mg/dl (7-24); CHLORIDE 110 mmol/L (98-107); CREATININE 0.95 mg/dL (0.55-1.02); LIPASE 76 U/L (73-393); POTASSIUM 3.7 mmol/L (3.5-5.1); SGOT/AST 21 IU/L (3-35); SGPT/ALT 35 U/L (12-78); SODIUM 140 mmol/L (136-145); TOTAL PROTEIN 6.9 gm/dL (6.4-8.2)
[2019-02-11 18:47] LABS: BACTERIA TRACE
[2019-02-11 19:24] LABS: URINE AMPHETAMINES < 1000 (1000ng/ml); URINE BARBITURATES < 200 (200ng/ml); URINE BENZODIAZEPINES < 200 (200ng/ml); URINE CANNABINOIDS (THC) < 50 (50ng/ml); URINE COCAINE < 300 (300ng/ml); URINE METHADONE < 300 (300ng/ml); URINE OPIATES > 300 (300ng/ml); URINE PHENCYCLIDINE < 25 (25ng/ml)
[2019-02-11] MEDS ORDERED: ZOFRAN4 MG PO (20:20)
== END 2019-02-11 20:45 | disposition home or self-care (01) ==
LOC: ED 17:32
PROVIDERS: Physician Assistant
DX: K59.00 Constipation, unspecified (principal); R10.13 Epigastric pain; R11.0 Nausea; R68.83 Chills (without fever); Z79.899 Other long term (current) drug therapy; Z88.1 Allergy status to other antibiotic agents; Z88.8 Allergy status to other drugs, medicaments and biological substances; Z98.890 Other specified postprocedural states

== ENCOUNTER → 2019-03-06 | Outpatient (CLI) | payer OTHER | END | disposition home or self-care (01) | LOC: RAD 10:55 | DX: M54.5 Low back pain (principal) ==

== ENCOUNTER 2019-07-11 19:15 | Emergency (ER) | payer OTHER ==
[~2019-07-11] VITALS: Wt 122.5 kg
[2019-07-11 19:17] VITALS: BP 187/112
[2019-07-11] MEDS ORDERED: DOXYCYCLINE100 M3 PO (20:34)
[2019-07-11] MEDS ORDERED: FLAGYL500 MG PO (20:34)
[2019-07-11] MEDS ORDERED: ANTIBIOTIC28.4 GM T (20:34)
== END 2019-07-11 20:39 | disposition home or self-care (01) ==
LOC: ED 19:15
DX: S01.551A Open bite of lip, initial encounter (principal); G43.909 Migraine, unspecified, not intractable, without status migrainosus; K21.9 Gastro-esophageal reflux disease without esophagitis; G89.29 Other chronic pain; Z88.0 Allergy status to penicillin; Z88.1 Allergy status to other antibiotic agents; Z88.8 Allergy status to other drugs, medicaments and biological substances; Z79.899 Other long term (current) drug therapy; Z79.2 Long term (current) use of antibiotics; W54.0XXA Bitten by dog, initial encounter; Y93.89 Activity, other specified; Y92.89 Other specified places as the place of occurrence of the external cause; Y99.8 Other external cause status

== ENCOUNTER 2019-07-31 16:35 | Inpatient (IN) | payer OTHER ==
[~2019-07-31] VITALS: Ht 157.4 cm; Wt 145.4 kg
[~2019-07-31 16:35] MED LIST changes: +ANTIBIOTIC28.4 GM T; +DOXYCYCLINE100 M3 PO; +FLAGYL500 MG PO
[2019-07-31 16:40] VITALS: BP 138/88
[2019-07-31] MEDS ORDERED: NEURONTIN300 MG PO (16:46)
[2019-07-31] MEDS ORDERED: METRONIDAZOLE500 M1 PO (16:47)
[2019-07-31] MEDS ORDERED: 'CLONIDINE0.1 MG PO (16:47)
--- NOTE | 2019-07-31 16:54 | NUR ---
THE PT CAN NOT PROVIDE A URINE SAMPLE AT THIS TIME
[2019-07-31 18:01] LABS: BASO % 0.3 % (0.0-1.0); EOS # 0.1 10*3/uL (0.0-0.4); HEMATOCRIT 44.6 % (37.0-47.0); HEMOGLOBIN 14.7 g/dl (12.0-16.0); LYMPH # 2.2 10*3/uL (1.3-4.4); LYMPH % 25.4 % (27.0-41.0); MEAN CELL VOLUME 87.5 fl (81.0-99.0); MEAN CORPUSCULAR HGB 28.8 pg (27.0-31.0); MEAN PLATELET VOLUME 10.2 fl (9.6-12.3); MONO # 0.4 10*3/uL (0.1-1.0); NEUT # 5.9 10*3/uL (2.3-7.9); NEUT % 67.8 % (47.0-73.0); PLATELET COUNT AUTOMATED 251 10*3/uL (130-400); RED CELL DISTRI WIDTH 12.2 % (0-14.5); WHITE BLOOD COUNT 8.7 10*3/uL (4.8-10.8)
[2019-07-31 18:13] LABS: ALBUMIN 3.4 gm/dl (3.1-4.5); ALKALINE PHOSPHATASE 63 U/L (45-117); BUN 9 mg/dl (7-24); CHLORIDE 106 mmol/L (98-107); CREATININE 1.07 mg/dL (0.55-1.02); POTASSIUM 4.2 mmol/L (3.5-5.1); SGOT/AST 12 IU/L (3-35); SGPT/ALT 21 U/L (12-78); SODIUM 139 mmol/L (136-145); TOTAL PROTEIN 7.1 gm/dL (6.4-8.2)
--- NOTE | 2019-07-31 18:13 | NUR ---
THE PT CAN NOT PROVIDE A URINE SAMPLE AT THIS TIME
[2019-07-31 18:17] LABS: LIPASE 9613 U/L (73-393)
[2019-07-31 20:23] VITALS: BP 157/85
--- NOTE | 2019-07-31 21:00 | NUR ---
THE IV WOULD NOT FLUSH. IT WAS PULLED. IF NEEDED ANOTHER ONE WILL BE STARTED.
[2019-07-31] MEDS ORDERED: HYDROXYZINE HCL25 MG PO (22:01)
[2019-07-31] MEDS ORDERED: ALPRAZOLAM0.25 M2 PO (22:02)
--- NOTE | 2019-07-31 22:04 | NUR ---
THIS NURSE VERIFIED THE PATIENTS HOME MEDS WITH HER
--- NOTE | 2019-07-31 22:53 | NUR ---
REPORT CALLED TO ELIZABET. I LET HER KNOW ANDRÉS WILL BRING HER UP SHORTLY
[2019-07-31 23:15] VITALS: BP 139/80
--- NOTE | 2019-07-31 23:15 | NUR ---
A 38, admitted to , under the services of JUJU Kauffman DO with a diagnosis of ACUTE PANCREATITIS. Chief complaint is ABDOMINAL PAIN X1 WEEK WITH NAUSEA, VOMITING, AND LOSS OF APPETITE. Patient arrived via stretcher from ER. Monitor applied. Initial assessment completed. Vital signs taken and recorded. JUJU KAUFFMAN DO notified of admission to the unit. Orders received. See assessment for past medical history, medications and allergies. Patient and/or family oriented to unit. [facility] visitation policy reviewed. Clothing/patient valuable form completed. BILLY SOARES
--- NOTE | 2019-07-31 23:39 | NUR ---
SPOKE WITH DR CHU. INFORMED THAT PT'S MED REC IS COMPLETE AND READY FOR COMPREHENSIVE ADMISSION ORDERS. CONTINUE TO MONITOR THE PT.
--- NOTE | 2019-08-01 00:34 | NUR ---
PATIENT MEDICATED WITH MORPHINE FOR COMPLAINTS OF ABDOMINAL PAIN. RATES 04/26. MEDICATED WITH ZOFRAN WELL. WILL CHECK EFFECTIVENESS.
--- NOTE | 2019-08-01 02:00 | NUR ---
PATIENT SLEEPING. NO SIGNS OF DISTRESS. MORPHINE EFFECTIVE.
[2019-08-01 03:35] LABS: BILIRUBIN 2+ (NEGATIVE); BLOOD NEGATIVE (NEGATIVE); CLARITY SL CLOUDY (CLEAR); COLOR YELLOW (YELLOW); GLUCOSE NEGATIVE (NEGATIVE); KETONE NEGATIVE (NEGATIVE); LEUKO ESTERASE NEGATIVE (NEGATIVE); NITRITE NEGATIVE (NEGATIVE)
[2019-08-01 03:48] LABS: EPITHELIAL CELLS 30-35
--- NOTE | 2019-08-01 04:50 | NUR ---
PATIENT MEDICATED WITH MORPHINE FOR COMPLAINTS OF ABDOMINAL PAIN. RATES 01/24. WILL CHECK EFFECTIVNESS.
[2019-08-01 07:03] LABS: BASO % 0.5 % (0.0-1.0); EOS # 0.1 10*3/uL (0.0-0.4); EOS % 1.8 % (1.0-4.0); HEMATOCRIT 40.8 % (37.0-47.0); HEMOGLOBIN 13.2 g/dl (12.0-16.0); LYMPH # 1.9 10*3/uL (1.3-4.4); LYMPH % 33.6 % (27.0-41.0); MEAN CELL VOLUME 87.9 fl (81.0-99.0); MEAN CORPUSCULAR HGB 28.4 pg (27.0-31.0); MEAN CORPUSCULAR HGB CONC 32.4 g/dl (33.0-37.0); MEAN PLATELET VOLUME 10.3 fl (9.6-12.3); MONO # 0.4 10*3/uL (0.1-1.0); MONO % 6.9 % (3.0-9.0); NEUT # 3.2 10*3/uL (2.3-7.9); NEUT % 56.8 % (47.0-73.0); PLATELET COUNT AUTOMATED 203 10*3/uL (130-400); RED BLOOD COUNT 4.64 10*6/uL (4.10-5.10); RED CELL DISTRI WIDTH 12.1 % (0-14.5); WHITE BLOOD COUNT 5.7 10*3/uL (4.8-10.8)
[2019-08-01 07:16] LABS: ACT PARTIAL THROMBO TIME 27.1 SECONDS (20.0-32.1)
[2019-08-01 07:32] LABS: CHLORIDE 107 mmol/L (98-107); SODIUM 140 mmol/L (136-145)
[2019-08-01 07:49] LABS: BUN 12 mg/dl (7-24); CHOLESTEROL 187 mg/dL (<200); CREATININE 1.09 mg/dL (0.55-1.02); FREE T4 1.04 ng/dl (0.76-1.46); HDL CHOLESTEROL 56 mg/dl (40-60); LDL CHOLESTEROL 109 mg/dL (9-159); PHOSPHOROUS 3.9 mg/dL (2.5-4.9); TRIGLYCERIDES 110 mg/dl (<150); VLDL CHOLESTEROL 22 mg/dL (6-40)
[2019-08-01 07:51] LABS: LIPASE 7033 U/L (73-393)
[2019-08-01 08:00] VITALS: BP 135/75
[2019-08-01 08:38] LABS: VITAMIN D, 25-HYDROXY 11.8 ng/mL (30-100)
--- NOTE | 2019-08-01 09:00 | NUR ---
Forest Resource Specialist in to talk to patient. Patient states lives at home with mom. There are few steps in the home. Physician: anahy lowe Pharmacy: [facility] Home health services: none Patient's level of ADLs: INDEPENDENT Patient has working utilities: all working DME: none Follow-up physician's appointment after d/c: will be made by hospitalist nurse director upon discharge Does patient want to access PORTAL?: no Discharge plan discussed with patient, she lives at home with her mom, she is independent in adls and ambulation, she will return home when medically stable and denies any home needs, case management will follow. DOROTEO DEWITT
--- NOTE | 2019-08-01 09:19 | NUR ---
pt medicated with prn dilaudid for c/o abdominal pain 02/24. mehdi onitor.
[2019-08-01 12:00] VITALS: BP 137/76
--- NOTE | 2019-08-01 14:19 | NUR ---
PATIENT MEDICATED WITH IVP ZOFRAN FOR NAUSEA AND IVP DILAUDID 1MG FOR PAIN IN HER ABDOMEN RATED 9/10
[2019-08-01 16:00] VITALS: BP 144/74
--- NOTE | 2019-08-01 18:13 | NUR ---
PT MEDICATED WITH PRN DILAUDID FOR C/O ABDOMINAL PAIN THAT SHE RATES A 10. WILL MONITOR.
[2019-08-01 20:00] VITALS: BP 156/90
--- NOTE | 2019-08-01 20:26 | NUR ---
PATIENT COMPLAINING OF A MIGRAINE AND NAUSEA, MEDICATED WITH IMITREX AND REGLAN. NO OTHER COMPLAINS VOICED AT THIS TIME. WILL CHECK EFFECTIVENESS.
--- NOTE | 2019-08-01 22:30 | NUR ---
PATIENT MEDICATED WITH DILAUDID PER REQUEST FOR ABDOMINAL PAIN. RATES PAIN 03/27. IMITREX AND REGLAN EFFECTIVE. WILL CONTINUE TO MONTIOR.
[2019-08-02] VITALS: BP 133/71
--- NOTE | 2019-08-02 | NUR ---
PATIENT SLEEPING. DILAUDID EFFECTIVE. RESPIRATIONS EASY, NON LABORED. NO SIGNS OF DISTRESS. NS RUNNING @100ML/HR. BED IN LOWEST POSITION, CALL LIGHT WITHIN REACH. WILL COTINUE TO MONITOR.
--- NOTE | 2019-08-02 02:54 | NUR ---
PATIENT MEDICATED WITH DILAUDID PER REQUEST. RATES ABDOMINAL PAIN 03/27. NO OTHER COMPLAINTS. WILL CHECK EFFECTIVENESS.
[2019-08-02 07:30] LABS: BASO # 0.1 10*3/uL (0.0-0.1); BASO % 0.7 % (0.0-1.0); EOS # 0.1 10*3/uL (0.0-0.4); EOS % 1.4 % (1.0-4.0); HEMATOCRIT 42.5 % (37.0-47.0); HEMOGLOBIN 13.7 g/dl (12.0-16.0); LYMPH # 2.4 10*3/uL (1.3-4.4); LYMPH % 33.7 % (27.0-41.0); MEAN CELL VOLUME 89.5 fl (81.0-99.0); MEAN CORPUSCULAR HGB 28.8 pg (27.0-31.0); MEAN CORPUSCULAR HGB CONC 32.2 g/dl (33.0-37.0); MEAN PLATELET VOLUME 10.5 fl (9.6-12.3); MONO # 0.4 10*3/uL (0.1-1.0); NEUT % 57.8 % (47.0-73.0); PLATELET COUNT AUTOMATED 225 10*3/uL (130-400); RED BLOOD COUNT 4.75 10*6/uL (4.10-5.10); RED CELL DISTRI WIDTH 12.2 % (0-14.5)
[2019-08-02 07:59] LABS: BUN 6 mg/dl (7-24); CHLORIDE 111 mmol/L (98-107); CREATININE 0.87 mg/dL (0.55-1.02); LIPASE 814 U/L (73-393); POTASSIUM 3.7 mmol/L (3.5-5.1); SODIUM 139 mmol/L (136-145)
[2019-08-02 08:00] VITALS: BP 115/60
--- NOTE | 2019-08-02 09:00 | NUR ---
case management visits with patient, she states she will return home when medically stable and denies any home needs
--- NOTE | 2019-08-02 10:56 | NUR ---
Medicated with imitrex and reglan per prn order for c/o migrain and nausea.
--- NOTE | 2019-08-02 11:31 | NUR ---
Physican ordered imitrex sq. Pt states she vomited imitrex po that was given earlier. Injection given at this time per order. Pt denies nausea now.
--- NOTE | 2019-08-02 11:33 | NUR ---
Nutritional Support Services Note: Spoke with Pt regarding her recent diet upgrade from NPO to full clear liquid. Pt states that she is not tolerating it well. She is still experiencing nausea and vomiting. Will follow for appropriate PO intake. [employer] student
[2019-08-02 12:00] VITALS: BP 120/76
--- NOTE | 2019-08-02 15:31 | NUR ---
IV wrapped so pt may take a shower.
[2019-08-02 16:00] VITALS: BP 119/84
[2019-08-02 20:00] VITALS: BP 162/89
[2019-08-03] VITALS: BP 111/56
[2019-08-03 06:53] LABS: BASO # 0.1 10*3/uL (0.0-0.1); BASO % 0.7 % (0.0-1.0); EOS # 0.2 10*3/uL (0.0-0.4); HEMATOCRIT 38.1 % (37.0-47.0); HEMOGLOBIN 12.3 g/dl (12.0-16.0); LYMPH # 2.5 10*3/uL (1.3-4.4); LYMPH % 33.1 % (27.0-41.0); MEAN CORPUSCULAR HGB 28.7 pg (27.0-31.0); MEAN CORPUSCULAR HGB CONC 32.3 g/dl (33.0-37.0); MEAN PLATELET VOLUME 10.8 fl (9.6-12.3); MONO # 0.4 10*3/uL (0.1-1.0); MONO % 5.6 % (3.0-9.0); NEUT # 4.4 10*3/uL (2.3-7.9); NEUT % 57.2 % (47.0-73.0); PLATELET COUNT AUTOMATED 208 10*3/uL (130-400); RED BLOOD COUNT 4.28 10*6/uL (4.10-5.10); RED CELL DISTRI WIDTH 12.6 % (0-14.5); WHITE BLOOD COUNT 7.7 10*3/uL (4.8-10.8)
[2019-08-03 07:09] LABS: BUN 5 mg/dl (7-24); CHLORIDE 111 mmol/L (98-107); CREATININE 0.87 mg/dL (0.55-1.02); LIPASE 440 U/L (73-393); POTASSIUM 3.4 mmol/L (3.5-5.1); SODIUM 140 mmol/L (136-145)
[2019-08-03 08:00] VITALS: BP 118/72
--- NOTE | 2019-08-03 08:49 | NUR ---
DILAUDID GIVEN FOR C/O ABD PAIN OF 03/27. ZOFRAN GIVEN FOR C/O NAUSEA. WILL CONT TO MONITOR. CALL LIGHT IN REACH.
--- NOTE | 2019-08-03 08:49 | NUR ---
C/O ABD PAIN OF 9/10 AND NAUSEA. REQUESTED DILAUDID AND ZOFRAN. GIVEN AT THIS TIME. WILL CONT TO MONITOR. CALL LIGHT IN REACH.
--- NOTE | 2019-08-03 09:00 | NUR ---
case management visits with patient, she states she will return home when medically stable, case management will follow
--- NOTE | 2019-08-03 09:49 | NUR ---
DILAUDID AND ZOFRAN EFF. WILL CONT TO MONITOR. CALL LIGHT IN REACH.
[2019-08-03 12:00] VITALS: BP 143/79
--- NOTE | 2019-08-03 13:07 | NUR ---
C/O PAIN TO ABD OF 8.5/10 AND NAUSEA. GIVEN IV DILAUDID AND ZOFRAN. WILL CONT TO MONITOR. CALL LIGHT IN REACH.
[2019-08-03] MEDS ORDERED: VITAMIN D32000 UNI1 PO (13:24)
[2019-08-03] MEDS ORDERED: TOPAMAX100 M1 PO (13:24)
[2019-08-03] MEDS ORDERED: NORCO 5-325 TA1 EACH PO (13:24)
--- NOTE | 2019-08-03 14:07 | NUR ---
PT DISCHARED AT THIS TIME. IV REMOVED AND PRESSURE DRESSING APPLIED. VERBALIZED UNDERSTANDING OF DISCHARGE INSTRUCTIONS.
== END 2019-08-03 14:07 | disposition home or self-care (01) | DRG 439 ==
LOC: ED 16:35 → 5E 21:29 → EDHOLD 21:29 → 5E 22:50
PROVIDERS: Internal Medicine; Physician Assistant; ADMIT Family Medicine
DX: K85.90 Acute pancreatitis without necrosis or infection, unspecified (principal); K62.5 Hemorrhage of anus and rectum; E44.0 Moderate protein-calorie malnutrition; Z68.43 Body mass index [BMI] 50.0-59.9, adult; E03.9 Hypothyroidism, unspecified; D64.89 Other specified anemias; F32.9 Major depressive disorder, single episode, unspecified; G89.29 Other chronic pain; M25.569 Pain in unspecified knee; I10 Essential (primary) hypertension; K31.84 Gastroparesis; E66.01 Morbid (severe) obesity due to excess calories; F39 Unspecified mood [affective] disorder; F41.9 Anxiety disorder, unspecified; E55.9 Vitamin D deficiency, unspecified; G43.909 Migraine, unspecified, not intractable, without status migrainosus; E87.6 Hypokalemia; E87.8 Other disorders of electrolyte and fluid balance, not elsewhere classified; Z86.718 Personal history of other venous thrombosis and embolism; Z79.01 Long term (current) use of anticoagulants; Z88.1 Allergy status to other antibiotic agents; Z88.8 Allergy status to other drugs, medicaments and biological substances; Z90.49 Acquired absence of other specified parts of digestive tract; Z80.1 Family history of malignant neoplasm of trachea, bronchus and lung; Z79.899 Other long term (current) drug therapy

== ENCOUNTER 2019-08-25 15:01 | Emergency (ER) | payer OTHER ==
[~2019-08-25] VITALS: Ht 157.4 cm; Wt 145.1 kg
[~2019-08-25 15:01] MED LIST changes: +ALPRAZOLAM0.25 M2 PO; +HYDROXYZINE HCL25 MG PO; +METRONIDAZOLE500 M1 PO; +NORCO 5-325 TA1 EACH PO; +VITAMIN D32000 UNI1 PO
[2019-08-25 15:37] LABS: BASO # 0.1 10*3/uL (0.0-0.1); BASO % 0.7 % (0.0-1.0); EOS # 0.1 10*3/uL (0.0-0.4); EOS % 1.2 % (1.0-4.0); HEMATOCRIT 44.3 % (37.0-47.0); HEMOGLOBIN 14.7 g/dl (12.0-16.0); LYMPH # 1.9 10*3/uL (1.3-4.4); LYMPH % 28.2 % (27.0-41.0); MEAN CELL VOLUME 85.9 fl (81.0-99.0); MEAN CORPUSCULAR HGB 28.5 pg (27.0-31.0); MEAN CORPUSCULAR HGB CONC 33.2 g/dl (33.0-37.0); MEAN PLATELET VOLUME 10.2 fl (9.6-12.3); MONO # 0.3 10*3/uL (0.1-1.0); MONO % 3.8 % (3.0-9.0); NEUT # 4.5 10*3/uL (2.3-7.9); NEUT % 65.8 % (47.0-73.0); PLATELET COUNT AUTOMATED 264 10*3/uL (130-400); RED BLOOD COUNT 5.16 10*6/uL (4.10-5.10); RED CELL DISTRI WIDTH 12.5 % (0-14.5); WHITE BLOOD COUNT 6.8 10*3/uL (4.8-10.8)
[2019-08-25 15:55] LABS: ALBUMIN 3.6 gm/dl (3.1-4.5); ALKALINE PHOSPHATASE 87 U/L (45-117); BUN 9 mg/dl (7-24); CHLORIDE 113 mmol/L (98-107); CREATININE 0.99 mg/dL (0.55-1.02); LIPASE 79 U/L (73-393); POTASSIUM 3.6 mmol/L (3.5-5.1); SGOT/AST 6 IU/L (3-35); SGPT/ALT 17 U/L (12-78); SODIUM 140 mmol/L (136-145); TOTAL PROTEIN 7.3 gm/dL (6.4-8.2)
[2019-08-25 15:57] LABS: BETA-HCG, QUANT < 1.0 mIU/mL (1-3)
[2019-08-25 16:21] LABS: BILIRUBIN NEGATIVE (NEGATIVE); BLOOD NEGATIVE (NEGATIVE); CLARITY SL CLOUDY (CLEAR); COLOR YELLOW (YELLOW); GLUCOSE NEGATIVE (NEGATIVE); KETONE NEGATIVE (NEGATIVE); LEUKO ESTERASE NEGATIVE (NEGATIVE); NITRITE NEGATIVE (NEGATIVE); UROBILINOGEN 0.2 E.U./dl (0.2-1.0)
[2019-08-25 17:27] VITALS: BP 132/78
== END 2019-08-25 17:45 | disposition home or self-care (01) ==
LOC: ED 15:01
PROVIDERS: Nurse Practitioner Family
DX: R10.13 Epigastric pain (principal); R10.12 Left upper quadrant pain; K21.9 Gastro-esophageal reflux disease without esophagitis; G43.909 Migraine, unspecified, not intractable, without status migrainosus; G89.29 Other chronic pain; Z90.49 Acquired absence of other specified parts of digestive tract; Z88.1 Allergy status to other antibiotic agents; Z88.8 Allergy status to other drugs, medicaments and biological substances; Z79.899 Other long term (current) drug therapy

== ENCOUNTER 2019-10-05 18:12 | Emergency (ER) | payer OTHER ==
[~2019-10-05] VITALS: Ht 157.4 cm; Wt 141.1 kg
[2019-10-05 18:19] VITALS: BP 130/95
[2019-10-05 19:10] LABS: BASO # 0.1 10*3/uL (0.0-0.1); BASO % 0.8 % (0.0-1.0); EOS # 0.2 10*3/uL (0.0-0.4); EOS % 2.5 % (1.0-4.0); HEMATOCRIT 43.7 % (37.0-47.0); HEMOGLOBIN 14.4 g/dl (12.0-16.0); LYMPH # 3.4 10*3/uL (1.3-4.4); LYMPH % 34.4 % (27.0-41.0); MEAN CELL VOLUME 85.9 fl (81.0-99.0); MEAN CORPUSCULAR HGB 28.3 pg (27.0-31.0); MEAN PLATELET VOLUME 10.7 fl (9.6-12.3); MONO # 0.5 10*3/uL (0.1-1.0); MONO % 4.6 % (3.0-9.0); NEUT # 5.6 10*3/uL (2.3-7.9); NEUT % 57.3 % (47.0-73.0); PLATELET COUNT AUTOMATED 281 10*3/uL (130-400); RED BLOOD COUNT 5.09 10*6/uL (4.10-5.10); RED CELL DISTRI WIDTH 12.9 % (0-14.5); WHITE BLOOD COUNT 9.8 10*3/uL (4.8-10.8)
[2019-10-05 19:25] LABS: ALBUMIN 3.5 gm/dl (3.1-4.5); ALKALINE PHOSPHATASE 84 U/L (45-117); BUN 9 mg/dl (7-24); CHLORIDE 109 mmol/L (98-107); CREATININE 0.93 mg/dL (0.55-1.02); LIPASE 110 U/L (73-393); POTASSIUM 3.9 mmol/L (3.5-5.1); SGOT/AST 15 IU/L (3-35); SGPT/ALT 24 U/L (12-78); SODIUM 141 mmol/L (136-145)
[2019-10-05 19:33] LABS: ACT PARTIAL THROMBO TIME 27.1 SECONDS (20.0-32.1)
[2019-10-05 21:19] LABS: BILIRUBIN NEGATIVE (NEGATIVE); BLOOD NEGATIVE (NEGATIVE); CLARITY CLEAR (CLEAR); COLOR YELLOW (YELLOW); GLUCOSE NEGATIVE (NEGATIVE); KETONE NEGATIVE (NEGATIVE); LEUKO ESTERASE NEGATIVE (NEGATIVE); NITRITE NEGATIVE (NEGATIVE); SPECIFIC GRAVITY 1.025 (1.005-1.030); UROBILINOGEN 0.2 E.U./dl (0.2-1.0)
== END 2019-10-05 21:34 | disposition home or self-care (01) ==
LOC: ED 18:12
PROVIDERS: Family Medicine
DX: R10.13 Epigastric pain (principal); R05 Cough; E03.9 Hypothyroidism, unspecified; G43.909 Migraine, unspecified, not intractable, without status migrainosus; I10 Essential (primary) hypertension; E66.01 Morbid (severe) obesity due to excess calories; Z88.1 Allergy status to other antibiotic agents; Z88.8 Allergy status to other drugs, medicaments and biological substances; Z79.899 Other long term (current) drug therapy; Z86.718 Personal history of other venous thrombosis and embolism; Z68.43 Body mass index [BMI] 50.0-59.9, adult

== ENCOUNTER 2020-02-23 10:36 | Emergency (ER) | payer OTHER ==
[~2020-02-23] VITALS: Ht 157.4 cm; Wt 145.1 kg
[2020-02-23 10:41] VITALS: BP 155/107
[2020-02-23 11:17] LABS: BASO % 0.8 % (0.0-1.0); EOS # 0.2 10*3/uL (0.0-0.4); HEMATOCRIT 43.5 % (37.0-47.0); LYMPH # 1.8 10*3/uL (1.3-4.4); MEAN CORPUSCULAR HGB CONC 32.2 g/dl (33.0-37.0); MEAN PLATELET VOLUME 9.7 fl (9.6-12.3); MONO # 0.3 10*3/uL (0.1-1.0); MONO % 5.6 % (3.0-9.0); NEUT # 2.7 10*3/uL (2.3-7.9); NEUT % 54.4 % (47.0-73.0); PLATELET COUNT AUTOMATED 261 10*3/uL (130-400); RED BLOOD COUNT 5.18 10*6/uL (4.10-5.10); RED CELL DISTRI WIDTH 12.8 % (0-14.5)
[2020-02-23 11:32] LABS: ALBUMIN 3.4 gm/dl (3.1-4.5); ALKALINE PHOSPHATASE 58 U/L (45-117); BUN 10 mg/dl (7-24); CHLORIDE 107 mmol/L (98-107); CREATININE 0.97 mg/dL (0.55-1.02); LIPASE 49 U/L (73-393); POTASSIUM 3.8 mmol/L (3.5-5.1); SGOT/AST 12 IU/L (3-35); SGPT/ALT 16 U/L (12-78); SODIUM 136 mmol/L (136-145); TOTAL PROTEIN 7.2 gm/dL (6.4-8.2)
== END 2020-02-23 13:27 | disposition left against medical advice (07) ==
LOC: ED 10:36
PROVIDERS: Nurse Practitioner Family
DX: R10.9 Unspecified abdominal pain (principal); G43.909 Migraine, unspecified, not intractable, without status migrainosus; F32.9 Major depressive disorder, single episode, unspecified; K21.9 Gastro-esophageal reflux disease without esophagitis; Z88.8 Allergy status to other drugs, medicaments and biological substances; Z79.899 Other long term (current) drug therapy; Z53.29 Procedure and treatment not carried out because of patient's decision for other reasons

== ENCOUNTER 2020-11-28 11:33 | Inpatient (IN) | payer OTHER ==
[~2020-11-28] VITALS: Ht 157.4 cm; Wt 134.5 kg
[2020-11-28] VITALS (7 sets, daily range): BP systolic 158–208; BP diastolic 86–114
[2020-11-28 14:08] LABS: BASO # 0.1 10*3/uL (0.0-0.1); BASO % 0.4 % (0.0-1.0); EOS % 0.2 % (1.0-4.0); HEMATOCRIT 49.5 % (37.0-47.0); LYMPH # 2.9 10*3/uL (1.3-4.4); LYMPH % 23.6 % (27.0-41.0); MEAN CELL VOLUME 83.1 fl (81.0-99.0); MEAN CORPUSCULAR HGB 27.9 pg (27.0-31.0); MEAN CORPUSCULAR HGB CONC 33.5 g/dl (33.0-37.0); MEAN PLATELET VOLUME 10.5 fl (9.6-12.3); MONO # 0.5 10*3/uL (0.1-1.0); MONO % 4.3 % (3.0-9.0); NEUT # 8.6 10*3/uL (2.3-7.9); NEUT % 71.1 % (47.0-73.0); PLATELET COUNT AUTOMATED 304 10*3/uL (130-400); RED BLOOD COUNT 5.96 10*6/uL (4.10-5.10); RED CELL DISTRI WIDTH 13.4 % (0-14.5); WHITE BLOOD COUNT 12.1 10*3/uL (4.8-10.8)
[2020-11-28 14:21] LABS: INTERNATIONAL NORM RATIO 1.5 (2.0-3.5)
[2020-11-28 14:25] LABS: ALBUMIN 4.1 gm/dl (3.1-4.5); ALKALINE PHOSPHATASE 71 U/L (45-117); BUN 11 mg/dl (7-24); CHLORIDE 109 mmol/L (98-107); CREATININE 0.97 mg/dL (0.55-1.02); LIPASE 46 U/L (73-393); POTASSIUM 3.3 mmol/L (3.5-5.1); SGOT/AST 9 IU/L (3-35); SGPT/ALT 18 U/L (12-78); SODIUM 139 mmol/L (136-145); TOTAL PROTEIN 8.7 gm/dL (6.4-8.2)
[2020-11-28 14:28] LABS: TROPONIN I < 0.015 ng/ml (<0.045)
[2020-11-28 14:40] LABS: BETA-HCG, QUANT < 1.0 mIU/mL (1-3)
[2020-11-29 06:10] LABS: ALBUMIN 3.4 gm/dl (3.1-4.5); ALKALINE PHOSPHATASE 101 U/L (45-117); BUN 8 mg/dl (7-24); CHLORIDE 109 mmol/L (98-107); CHOLESTEROL 174 mg/dL (<200); CREATININE 0.81 mg/dL (0.55-1.02); LDL CHOLESTEROL 106 mg/dL (9-159); POTASSIUM 3.3 mmol/L (3.5-5.1); SGOT/AST 34 IU/L (3-35); SGPT/ALT 31 U/L (12-78); SODIUM 139 mmol/L (136-145); TOTAL PROTEIN 7.3 gm/dL (6.4-8.2); TRIGLYCERIDES 104 mg/dl (<150)
[2020-11-29 06:26] LABS: BASO # 0.1 10*3/uL (0.0-0.1); BASO % 0.5 % (0.0-1.0); EOS # 0.1 10*3/uL (0.0-0.4); EOS % 0.5 % (1.0-4.0); HEMATOCRIT 44.3 % (37.0-47.0); MEAN CELL VOLUME 84.4 fl (81.0-99.0); MEAN CORPUSCULAR HGB 28.2 pg (27.0-31.0); MEAN CORPUSCULAR HGB CONC 33.4 g/dl (33.0-37.0); MONO # 0.6 10*3/uL (0.1-1.0); MONO % 6.2 % (3.0-9.0); NEUT # 5.5 10*3/uL (2.3-7.9); NEUT % 59.5 % (47.0-73.0); PLATELET COUNT AUTOMATED 264 10*3/uL (130-400); RED BLOOD COUNT 5.25 10*6/uL (4.10-5.10); RED CELL DISTRI WIDTH 13.5 % (0-14.5); WHITE BLOOD COUNT 9.2 10*3/uL (4.8-10.8)
[2020-11-29 06:37] LABS: INTERNATIONAL NORM RATIO 1.5 (2.0-3.5)
[2020-11-29 08:00] VITALS: BP 166/80
[2020-11-29 12:00] VITALS: BP 157/91
[2020-11-29] MEDS ORDERED: AMBIEN10 M1 PO (14:09)
[2020-11-29] MEDS ORDERED: NEXIUM40 MG PO (14:10)
[2020-11-29 16:00] VITALS: BP 144/77
[2020-11-29 20:00] VITALS: BP 133/98
[2020-11-30 00:15] VITALS: BP 162/106
[2020-11-30 06:03] LABS: BUN 8 mg/dl (7-24); CHLORIDE 108 mmol/L (98-107); CREATININE 0.86 mg/dL (0.55-1.02); POTASSIUM 3.2 mmol/L (3.5-5.1); SODIUM 141 mmol/L (136-145)
[2020-11-30 06:15] LABS: BASO % 0.6 % (0.0-1.0); EOS # 0.1 10*3/uL (0.0-0.4); EOS % 1.7 % (1.0-4.0); HEMATOCRIT 43.4 % (37.0-47.0); LYMPH # 2.8 10*3/uL (1.3-4.4); LYMPH % 38.7 % (27.0-41.0); MEAN CELL VOLUME 84.8 fl (81.0-99.0); MEAN CORPUSCULAR HGB 28.1 pg (27.0-31.0); MEAN CORPUSCULAR HGB CONC 33.2 g/dl (33.0-37.0); MEAN PLATELET VOLUME 11.1 fl (9.6-12.3); MONO # 0.5 10*3/uL (0.1-1.0); MONO % 6.3 % (3.0-9.0); NEUT # 3.8 10*3/uL (2.3-7.9); NEUT % 52.4 % (47.0-73.0); PLATELET COUNT AUTOMATED 249 10*3/uL (130-400); RED BLOOD COUNT 5.12 10*6/uL (4.10-5.10); RED CELL DISTRI WIDTH 13.8 % (0-14.5); WHITE BLOOD COUNT 7.1 10*3/uL (4.8-10.8)
[2020-11-30 08:00] VITALS: BP 130/69
[2020-11-30 12:00] VITALS: BP 114/60
[2020-11-30 13:11] LABS: BILIRUBIN Negative (Negative); BLOOD 3+ (Negative); CLARITY Cloudy (Clear); COLOR Orange (Yellow); GLUCOSE Negative (Negative); KETONE Negative (Negative); LEUKO ESTERASE Trace (Negative); NITRITE Negative (Negative); SPECIFIC GRAVITY 1.015 (1.001-1.030)
[2020-11-30 13:40] LABS: BACTERIA 1+; MUCOUS 1+; RBC TNTC rbc/hpf (0-2)
[2020-11-30 16:00] VITALS: BP 131/72
[2020-11-30 20:00] VITALS: BP 114/55
[2020-12-01] VITALS (9 sets, daily range): BP systolic 105–176; BP diastolic 54–90
[2020-12-01 06:10] LABS: BUN 10 mg/dl (7-24); CHLORIDE 109 mmol/L (98-107); CREATININE 0.69 mg/dL (0.55-1.02); POTASSIUM 3.5 mmol/L (3.5-5.1); SODIUM 140 mmol/L (136-145)
[2020-12-01 06:20] LABS: BASO # 0.1 10*3/uL (0.0-0.1); BASO % 0.9 % (0.0-1.0); EOS # 0.2 10*3/uL (0.0-0.4); EOS % 2.7 % (1.0-4.0); HEMATOCRIT 40.8 % (37.0-47.0); LYMPH # 3.4 10*3/uL (1.3-4.4); LYMPH % 51.5 % (27.0-41.0); MEAN CELL VOLUME 85.4 fl (81.0-99.0); MEAN CORPUSCULAR HGB CONC 32.8 g/dl (33.0-37.0); MEAN PLATELET VOLUME 11.4 fl (9.6-12.3); MONO # 0.5 10*3/uL (0.1-1.0); NEUT # 2.5 10*3/uL (2.3-7.9); NEUT % 37.8 % (47.0-73.0); PLATELET COUNT AUTOMATED 215 10*3/uL (130-400); RED BLOOD COUNT 4.78 10*6/uL (4.10-5.10); RED CELL DISTRI WIDTH 13.8 % (0-14.5); WHITE BLOOD COUNT 6.7 10*3/uL (4.8-10.8)
[2020-12-02] VITALS: BP 134/63
[2020-12-02 07:43] LABS: BASO # 0.1 10*3/uL (0.0-0.1); BASO % 0.7 % (0.0-1.0); EOS # 0.2 10*3/uL (0.0-0.4); LYMPH # 3.3 10*3/uL (1.3-4.4); LYMPH % 49.2 % (27.0-41.0); MEAN CELL VOLUME 85.8 fl (81.0-99.0); MEAN CORPUSCULAR HGB 28.2 pg (27.0-31.0); MEAN CORPUSCULAR HGB CONC 32.9 g/dl (33.0-37.0); MONO # 0.4 10*3/uL (0.1-1.0); MONO % 6.4 % (3.0-9.0); NEUT # 2.7 10*3/uL (2.3-7.9); NEUT % 40.4 % (47.0-73.0); PLATELET COUNT AUTOMATED 206 10*3/uL (130-400); RED BLOOD COUNT 4.78 10*6/uL (4.10-5.10); RED CELL DISTRI WIDTH 13.5 % (0-14.5); WHITE BLOOD COUNT 6.7 10*3/uL (4.8-10.8)
[2020-12-02 07:56] LABS: BUN 11 mg/dl (7-24); CHLORIDE 110 mmol/L (98-107); CREATININE 0.79 mg/dL (0.55-1.02); POTASSIUM 3.9 mmol/L (3.5-5.1); SODIUM 137 mmol/L (136-145)
[2020-12-02 08:36] VITALS: BP 140/81
[2020-12-02] MEDS ORDERED: PROTONIX40 MG PO (11:38)
[2020-12-02] MEDS ORDERED: CARAFATE1 G1 PO (11:38)
[2020-12-02] MEDS ORDERED: VITAMIN D3125 MCG PO (11:38)
[2020-12-02 12:00] VITALS: BP 124/84
== END 2020-12-02 14:43 | disposition home or self-care (01) | DRG 378 ==
LOC: ED 11:33 → 5E 18:59 → EDHOLD 18:59 → 5E 20:10
PROVIDERS: Internal Medicine; Nurse Practitioner; Student in an Organized Health Care Education/Training Program; ADMIT Family Medicine; ATTEND Family Medicine
PROC: 0DB78ZX Excision of Stomach, Pylorus, Via Natural or Artificial Opening Endoscopic, Diagnostic (ICD-10-PCS; principal; 2020-12-01)
DX: K25.0 Acute gastric ulcer with hemorrhage (principal); I16.1 Hypertensive emergency; B37.0 Candidal stomatitis; Z68.43 Body mass index [BMI] 50.0-59.9, adult; D68.9 Coagulation defect, unspecified; E87.6 Hypokalemia; E83.41 Hypermagnesemia; F32.9 Major depressive disorder, single episode, unspecified; D72.829 Elevated white blood cell count, unspecified; E66.01 Morbid (severe) obesity due to excess calories; D64.9 Anemia, unspecified; D75.1 Secondary polycythemia; E87.8 Other disorders of electrolyte and fluid balance, not elsewhere classified; R73.9 Hyperglycemia, unspecified; K31.84 Gastroparesis; E03.9 Hypothyroidism, unspecified; G43.909 Migraine, unspecified, not intractable, without status migrainosus; I10 Essential (primary) hypertension; F41.9 Anxiety disorder, unspecified; K57.30 Diverticulosis of large intestine without perforation or abscess without bleeding; Z86.718 Personal history of other venous thrombosis and embolism; Z90.49 Acquired absence of other specified parts of digestive tract; Z80.1 Family history of malignant neoplasm of trachea, bronchus and lung; Z88.1 Allergy status to other antibiotic agents; Z88.8 Allergy status to other drugs, medicaments and biological substances; Z79.899 Other long term (current) drug therapy

== ENCOUNTER 2021-03-31 15:44 | Emergency (ER) | payer OTHER ==
[~2021-03-31] VITALS: Ht 157.4 cm; Wt 140.6 kg
[~2021-03-31 15:44] MED LIST changes: +VITAMIN D3125 MCG PO
[2021-03-31 15:52] VITALS: BP 192/104
[2021-03-31 17:28] LABS: BASO % 0.4 % (0.0-1.0); EOS # 0.1 10*3/uL (0.0-0.4); HEMATOCRIT 46.3 % (37.0-47.0); LYMPH # 2.3 10*3/uL (1.3-4.4); LYMPH % 24.9 % (27.0-41.0); MEAN CORPUSCULAR HGB 27.8 pg (27.0-31.0); MEAN PLATELET VOLUME 9.9 fl (9.6-12.3); MONO # 0.4 10*3/uL (0.1-1.0); MONO % 4.3 % (3.0-9.0); NEUT # 6.4 10*3/uL (2.3-7.9); NEUT % 68.9 % (47.0-73.0); PLATELET COUNT AUTOMATED 290 10*3/uL (130-400); RED BLOOD COUNT 5.51 10*6/uL (4.10-5.10); RED CELL DISTRI WIDTH 13.1 % (0-14.5); WHITE BLOOD COUNT 9.3 10*3/uL (4.8-10.8)
[2021-03-31 17:45] LABS: ALBUMIN 3.7 gm/dl (3.1-4.5); ALKALINE PHOSPHATASE 69 U/L (45-117); BUN 8 mg/dl (7-24); CHLORIDE 110 mmol/L (98-107); CREATININE 1.02 mg/dL (0.55-1.02); LIPASE 49 U/L (73-393); POTASSIUM 3.8 mmol/L (3.5-5.1); SGOT/AST 7 IU/L (3-35); SGPT/ALT 17 U/L (12-78); SODIUM 140 mmol/L (136-145); TOTAL PROTEIN 7.7 gm/dL (6.4-8.2)
[2021-03-31 18:16] LABS: BILIRUBIN Negative (Negative); BLOOD Negative (Negative); CLARITY Cloudy (Clear); COLOR Yellow (Yellow); GLUCOSE Negative (Negative); KETONE Negative (Negative); LEUKO ESTERASE Negative (Negative); NITRITE Negative (Negative); UROBILINOGEN 0.2 E.U./dl (0.0-1.0)
[2021-03-31 18:47] LABS: BACTERIA 2+
== END 2021-03-31 20:01 | disposition left against medical advice (07) ==
LOC: ED 15:44
PROVIDERS: Emergency Medicine; Physician Assistant
DX: R10.84 Generalized abdominal pain (principal); Z88.1 Allergy status to other antibiotic agents; Z88.8 Allergy status to other drugs, medicaments and biological substances; Z79.899 Other long term (current) drug therapy

== ENCOUNTER 2021-04-01 15:21 | Emergency (ER) | payer OTHER | END 2021-04-01 19:50 | disposition left against medical advice (07) | LOC: ED 15:21 | DX: R11.10 Vomiting, unspecified (principal); Z53.21 Procedure and treatment not carried out due to patient leaving prior to being seen by health care provider ==

== ENCOUNTER 2021-05-22 17:35 | Inpatient (IN) | payer OTHER ==
[~2021-05-22] VITALS: Ht 157.4 cm; Wt 133.8 kg
[2021-05-22 17:38] VITALS: BP 187/109
[2021-05-22 18:34] LABS: WHITE BLOOD COUNT 14.1 10*3/uL (4.8-10.8)
[2021-05-22 18:45] LABS: BASO # 0.1 10*3/uL (0.0-0.1); BASO % 0.4 % (0.0-1.0); EOS % 0.2 % (1.0-4.0); LYMPH # 1.5 10*3/uL (1.3-4.4); LYMPH % 10.9 % (27.0-41.0); MEAN CELL VOLUME 86.4 fl (81.0-99.0); MEAN CORPUSCULAR HGB CONC 32.4 g/dl (33.0-37.0); MEAN PLATELET VOLUME 10.1 fl (9.6-12.3); MONO # 0.5 10*3/uL (0.1-1.0); MONO % 3.5 % (3.0-9.0); NEUT # 11.9 10*3/uL (2.3-7.9); NEUT % 84.4 % (47.0-73.0); PLATELET COUNT AUTOMATED 266 10*3/uL (130-400); RED BLOOD COUNT 4.86 10*6/uL (4.10-5.10); RED CELL DISTRI WIDTH 12.9 % (0-14.5)
[2021-05-22 18:46] LABS: ACT PARTIAL THROMBO TIME 25.6 SECONDS (20.0-32.1)
[2021-05-22 18:59] LABS: BUN 15 mg/dl (7-24); CHLORIDE 112 mmol/L (98-107); CREATININE 0.85 mg/dL (0.55-1.02); POTASSIUM 3.4 mmol/L (3.5-5.1); SODIUM 138 mmol/L (136-145)
[2021-05-22 20:25] VITALS: BP 168/95
[2021-05-22] MEDS ORDERED: SUMATRIPTA6 MG/0.53 SQ (21:32)
[2021-05-23 01:04] VITALS: BP 200/100
[2021-05-23 02:30] VITALS: BP 185/99
[2021-05-23 04:55] VITALS: BP 177/105
[2021-05-23 05:28] LABS: ALBUMIN 3.1 gm/dl (3.1-4.5); ALKALINE PHOSPHATASE 106 U/L (45-117); BUN 12 mg/dl (7-24); CHLORIDE 112 mmol/L (98-107); CREATININE 0.81 mg/dL (0.55-1.02); POTASSIUM 3.8 mmol/L (3.5-5.1); SGOT/AST 61 IU/L (3-35); SGPT/ALT 50 U/L (12-78); SODIUM 138 mmol/L (136-145); TOTAL PROTEIN 6.7 gm/dL (6.4-8.2)
[2021-05-23 06:06] LABS: BASO # 0.1 10*3/uL (0.0-0.1); BASO % 0.4 % (0.0-1.0); EOS % 0.3 % (1.0-4.0); HEMATOCRIT 39.6 % (37.0-47.0); LYMPH # 2.7 10*3/uL (1.3-4.4); MEAN CELL VOLUME 87.8 fl (81.0-99.0); MEAN CORPUSCULAR HGB 28.4 pg (27.0-31.0); MEAN CORPUSCULAR HGB CONC 32.3 g/dl (33.0-37.0); MEAN PLATELET VOLUME 10.5 fl (9.6-12.3); MONO # 0.6 10*3/uL (0.1-1.0); MONO % 5.1 % (3.0-9.0); NEUT # 8.9 10*3/uL (2.3-7.9); NEUT % 71.7 % (47.0-73.0); PLATELET COUNT AUTOMATED 257 10*3/uL (130-400); RED BLOOD COUNT 4.51 10*6/uL (4.10-5.10); WHITE BLOOD COUNT 12.4 10*3/uL (4.8-10.8)
[2021-05-23 06:44] VITALS: BP 170/100
[2021-05-23 07:51] VITALS: BP 164/98
[2021-05-23] MEDS ORDERED: HYDROCODONE-AC1 EAC1 PO (11:32)
[2021-05-23] MEDS ORDERED: ZOFRAN4 MG PO (11:33)
== END 2021-05-23 11:57 | disposition home or self-care (01) | DRG 563 ==
LOC: ED 17:35 → EDHOLD 19:42
PROVIDERS: Emergency Medicine; Student in an Organized Health Care Education/Training Program; ADMIT Emergency Medicine; ATTEND Emergency Medicine
PROC: 3E0T3BZ Introduction of Anesthetic Agent into Peripheral Nerves and Plexi, Percutaneous Approach (ICD-10-PCS; principal; 2021-05-22)
PROC: 2W3CXYZ Immobilization of Right Lower Arm using Other Device (ICD-10-PCS; 2021-05-22)
DX: S42.331A Displaced oblique fracture of shaft of humerus, right arm, initial encounter for closed fracture (principal); Z68.43 Body mass index [BMI] 50.0-59.9, adult; I16.0 Hypertensive urgency; E66.01 Morbid (severe) obesity due to excess calories; R73.9 Hyperglycemia, unspecified; E03.9 Hypothyroidism, unspecified; X58.XXXA Exposure to other specified factors, initial encounter; E87.6 Hypokalemia; F32.A Depression, unspecified; I11.9 Hypertensive heart disease without heart failure; G43.909 Migraine, unspecified, not intractable, without status migrainosus; F41.9 Anxiety disorder, unspecified; E55.9 Vitamin D deficiency, unspecified; W19.XXXA Unspecified fall, initial encounter; Y92.098 Other place in other non-institutional residence as the place of occurrence of the external cause; Z88.1 Allergy status to other antibiotic agents; Z88.8 Allergy status to other drugs, medicaments and biological substances; Z79.899 Other long term (current) drug therapy; Y93.89 Activity, other specified; Y99.8 Other external cause status; Z90.49 Acquired absence of other specified parts of digestive tract; Z80.1 Family history of malignant neoplasm of trachea, bronchus and lung; Z79.1 Long term (current) use of non-steroidal anti-inflammatories (NSAID)

== ENCOUNTER → 2021-06-02 | Day surgery (SDC) | payer OTHER ==
[2021-05-29 14:46] LABS: BASO % 0.3 % (0.0-1.0); HEMATOCRIT 40.4 % (37.0-47.0); LYMPH # 0.9 10*3/uL (1.3-4.4); LYMPH % 30.1 % (27.0-41.0); MEAN CELL VOLUME 85.2 fl (81.0-99.0); MEAN CORPUSCULAR HGB 28.5 pg (27.0-31.0); MEAN CORPUSCULAR HGB CONC 33.4 g/dl (33.0-37.0); MEAN PLATELET VOLUME 10.5 fl (9.6-12.3); MONO # 0.2 10*3/uL (0.1-1.0); MONO % 6.5 % (3.0-9.0); NEUT # 1.8 10*3/uL (2.3-7.9); NEUT % 62.8 % (47.0-73.0); PLATELET COUNT AUTOMATED 217 10*3/uL (130-400); RED BLOOD COUNT 4.74 10*6/uL (4.10-5.10); RED CELL DISTRI WIDTH 13.4 % (0-14.5); WHITE BLOOD COUNT 2.9 10*3/uL (4.8-10.8)
[2021-05-29 14:58] LABS: BUN 9 mg/dl (7-24); CHLORIDE 109 mmol/L (98-107); CREATININE 0.82 mg/dL (0.55-1.02); POTASSIUM 3.6 mmol/L (3.5-5.1); SODIUM 139 mmol/L (136-145)
[~2021-06-02] VITALS: Ht 157.4 cm; Wt 131.5 kg
[~2021-06-02] MED LIST changes: +HYDROCODONE-AC1 EAC1 PO; +SUMATRIPTA6 MG/0.53 SQ; +ZOFRAN4 MG SL
== END ==
LOC: SDC 05-29 14:00
PROVIDERS: ATTEND Orthopaedic Surgery
DX: S42.301A Unspecified fracture of shaft of humerus, right arm, initial encounter for closed fracture (principal); E66.01 Morbid (severe) obesity due to excess calories; F32.9 Major depressive disorder, single episode, unspecified; K21.9 Gastro-esophageal reflux disease without esophagitis; G43.909 Migraine, unspecified, not intractable, without status migrainosus; X58.XXXA Exposure to other specified factors, initial encounter; Y93.89 Activity, other specified; Y92.89 Other specified places as the place of occurrence of the external cause; Y99.8 Other external cause status; Z20.822 Contact with and (suspected) exposure to COVID-19; Z53.8 Procedure and treatment not carried out for other reasons

== ENCOUNTER 2021-06-07 13:16 | Emergency (ER) | payer OTHER ==
[~2021-06-07 13:16] MED LIST changes: -ZOFRAN4 MG SL
[2021-06-07 13:28] VITALS: BP 145/93
[2021-06-07 13:55] LABS: BASO % 0.2 % (0.0-1.0); EOS % 0.7 % (1.0-4.0); HEMATOCRIT 41.8 % (37.0-47.0); LYMPH # 1.2 10*3/uL (1.3-4.4); LYMPH % 27.9 % (27.0-41.0); MEAN CELL VOLUME 81.8 fl (81.0-99.0); MEAN CORPUSCULAR HGB CONC 34.2 g/dl (33.0-37.0); MEAN PLATELET VOLUME 10.4 fl (9.6-12.3); MONO # 0.4 10*3/uL (0.1-1.0); NEUT # 2.7 10*3/uL (2.3-7.9); NEUT % 60.5 % (47.0-73.0); PLATELET COUNT AUTOMATED 334 10*3/uL (130-400); RED BLOOD COUNT 5.11 10*6/uL (4.10-5.10); RED CELL DISTRI WIDTH 13.2 % (0-14.5); WHITE BLOOD COUNT 4.4 10*3/uL (4.8-10.8)
[2021-06-07 14:10] LABS: ALBUMIN 3.1 gm/dl (3.1-4.5); ALKALINE PHOSPHATASE 140 U/L (45-117); BUN 10 mg/dl (7-24); CHLORIDE 107 mmol/L (98-107); CREATININE 0.85 mg/dL (0.55-1.02); POTASSIUM 2.5 mmol/L (3.5-5.1); SGOT/AST 52 IU/L (3-35); SGPT/ALT 45 U/L (12-78); SODIUM 137 mmol/L (136-145); TOTAL PROTEIN 7.2 gm/dL (6.4-8.2)
[2021-06-07] MEDS ORDERED: ZITHROMAX250 MG PO (15:19)
[2021-06-07] MEDS ORDERED: ZOFRAN4 MG SL (15:19)
== END 2021-06-07 16:00 | disposition home or self-care (01) ==
LOC: ED 13:16
PROVIDERS: Student in an Organized Health Care Education/Training Program
DX: U07.1 COVID-19 (principal); Z88.1 Allergy status to other antibiotic agents; Z88.8 Allergy status to other drugs, medicaments and biological substances

== ENCOUNTER 2021-06-24 18:45 | Inpatient (IN) | payer OTHER ==
[~2021-06-24] VITALS: Ht 157.4 cm; Wt 133.4 kg
[~2021-06-24 18:45] MED LIST changes: +OXYCODONE-ACET1 EACH PO; +VITAMIN D350 MC2 PO; +ZOFRAN4 MG SL
[2021-06-24 19:11] VITALS: BP 126/103
[2021-06-24 21:45] LABS: BASO % 0.3 % (0.0-1.0); EOS # 0.3 10*3/uL (0.0-0.4); EOS % 3.3 % (1.0-4.0); HEMATOCRIT 33.4 % (37.0-47.0); LYMPH # 2.7 10*3/uL (1.3-4.4); LYMPH % 30.9 % (27.0-41.0); MEAN CELL VOLUME 90.8 fl (81.0-99.0); MEAN CORPUSCULAR HGB 29.1 pg (27.0-31.0); MEAN PLATELET VOLUME 10.7 fl (9.6-12.3); MONO # 0.6 10*3/uL (0.1-1.0); MONO % 6.7 % (3.0-9.0); NEUT % 57.9 % (47.0-73.0); PLATELET COUNT AUTOMATED 244 10*3/uL (130-400); RED BLOOD COUNT 3.68 10*6/uL (4.10-5.10); WHITE BLOOD COUNT 8.7 10*3/uL (4.8-10.8)
[2021-06-24 22:05] LABS: ALBUMIN 2.7 gm/dl (3.1-4.5); ALKALINE PHOSPHATASE 281 U/L (45-117); BUN 11 mg/dl (7-24); CHLORIDE 111 mmol/L (98-107); CREATININE 0.81 mg/dL (0.55-1.02); POTASSIUM 3.8 mmol/L (3.5-5.1); SGOT/AST 36 IU/L (3-35); SGPT/ALT 66 U/L (12-78); SODIUM 139 mmol/L (136-145); TOTAL PROTEIN 6.9 gm/dL (6.4-8.2)
[2021-06-25] VITALS (14 sets, daily range): BP systolic 131–200; BP diastolic 66–102
[2021-06-25 06:13] LABS: BASO % 0.3 % (0.0-1.0); EOS # 0.2 10*3/uL (0.0-0.4); EOS % 2.5 % (1.0-4.0); HEMATOCRIT 31.8 % (37.0-47.0); LYMPH # 2.1 10*3/uL (1.3-4.4); LYMPH % 33.3 % (27.0-41.0); MEAN CELL VOLUME 90.3 fl (81.0-99.0); MEAN CORPUSCULAR HGB CONC 32.1 g/dl (33.0-37.0); MONO # 0.4 10*3/uL (0.1-1.0); MONO % 6.9 % (3.0-9.0); NEUT # 3.6 10*3/uL (2.3-7.9); NEUT % 55.7 % (47.0-73.0); PLATELET COUNT AUTOMATED 210 10*3/uL (130-400); RED BLOOD COUNT 3.52 10*6/uL (4.10-5.10); RED CELL DISTRI WIDTH 14.8 % (0-14.5); WHITE BLOOD COUNT 6.4 10*3/uL (4.8-10.8)
[2021-06-25 06:22] LABS: ALBUMIN 2.4 gm/dl (3.1-4.5); BUN 9 mg/dl (7-24); CHLORIDE 113 mmol/L (98-107); POTASSIUM 3.5 mmol/L (3.5-5.1); SODIUM 142 mmol/L (136-145)
[2021-06-25 06:25] LABS: ALKALINE PHOSPHATASE 399 U/L (45-117); CREATININE 0.75 mg/dL (0.55-1.02); SGOT/AST 102 IU/L (3-35); SGPT/ALT 68 U/L (12-78); TOTAL PROTEIN 6.3 gm/dL (6.4-8.2)
[2021-06-25 06:36] LABS: ACT PARTIAL THROMBO TIME 28.3 SECONDS (20.0-32.1)
[2021-06-26] VITALS: BP 179/98
[2021-06-26 03:30] VITALS: BP 172/104
[2021-06-26 07:07] LABS: BASO % 0.4 % (0.0-1.0); EOS # 0.2 10*3/uL (0.0-0.4); EOS % 1.9 % (1.0-4.0); HEMATOCRIT 33.5 % (37.0-47.0); LYMPH # 1.8 10*3/uL (1.3-4.4); LYMPH % 22.6 % (27.0-41.0); MEAN CELL VOLUME 90.5 fl (81.0-99.0); MEAN CORPUSCULAR HGB 28.6 pg (27.0-31.0); MEAN CORPUSCULAR HGB CONC 31.6 g/dl (33.0-37.0); MEAN PLATELET VOLUME 10.6 fl (9.6-12.3); MONO # 0.5 10*3/uL (0.1-1.0); NEUT # 5.5 10*3/uL (2.3-7.9); NEUT % 68.1 % (47.0-73.0); PLATELET COUNT AUTOMATED 226 10*3/uL (130-400); RED CELL DISTRI WIDTH 14.7 % (0-14.5)
[2021-06-26 07:26] LABS: ALBUMIN 2.6 gm/dl (3.1-4.5); BUN 5 mg/dl (7-24); CHLORIDE 112 mmol/L (98-107); POTASSIUM 3.5 mmol/L (3.5-5.1); SODIUM 140 mmol/L (136-145)
[2021-06-26 07:30] LABS: ALKALINE PHOSPHATASE 424 U/L (45-117); SGOT/AST 72 IU/L (3-35); SGPT/ALT 71 U/L (12-78); TOTAL PROTEIN 6.5 gm/dL (6.4-8.2)
[2021-06-26 08:00] VITALS: BP 166/88
[2021-06-26 12:00] VITALS: BP 160/78
[2021-06-26 13:06] LABS: ACID FAST SPEC PROCESSING Tissue Grinding (.)
[2021-06-26 13:06] LABS: ACID FAST SPEC PROCESSING Tissue Grinding (.)
[2021-06-26 20:00] VITALS: BP 128/72
[2021-06-26] MEDS ORDERED: CEFEPIME1 GM/50 ML IV ×2 (23:25)
[2021-06-27] VITALS: BP 137/66
[2021-06-27 08:00] VITALS: BP 141/76
[2021-06-27 12:00] VITALS: BP 143/88
[2021-06-27 16:00] VITALS: BP 100/51; BP 113/64
[2021-06-27 20:00] VITALS: BP 121/66
[2021-06-28] VITALS: BP 129/71
[2021-06-28 08:00] VITALS: BP 127/68
[2021-06-28 12:00] VITALS: BP 124/64
[2021-06-28] MEDS ORDERED: CEFEPIME HYDROCH2 GM IV (12:43)
[2021-06-28 16:00] VITALS: BP 147/84
[2021-06-28 20:00] VITALS: BP 122/75
[2021-06-29] VITALS: BP 118/70
[2021-06-29 05:41] LABS: BUN 7 mg/dl (7-24); CREATININE 0.61 mg/dL (0.55-1.02)
[2021-06-29 08:00] VITALS: BP 132/78
[2021-06-29 12:00] VITALS: BP 142/80
[2021-06-29] MEDS ORDERED: ALPRAZOLAM0.25 M2 PO (14:15)
[2021-06-29] MEDS ORDERED: CLONIDINE HCL0.2 MG PO (14:15)
[2021-06-29] MEDS ORDERED: PERCOCET 5-3251 EACH PO (14:15)
[2021-06-29] MEDS ORDERED: NEURONTIN300 MG PO (14:15)
[2021-06-29] MEDS ORDERED: AMBIEN10 M1 PO (14:15)
[2021-06-29] MEDS ORDERED: CEFEPIME2 GM/100 M IV (14:47)
== END 2021-06-29 14:43 | disposition home or self-care (01) | DRG 856 ==
LOC: ED 18:45 → EDHOLD 06-25 00:08 → 4E 06-25 00:08
PROVIDERS: Internal Medicine; Orthopaedic Surgery; Student in an Organized Health Care Education/Training Program; ADMIT Internal Medicine; ATTEND Internal Medicine
PROC: 0KB70ZZ Excision of Right Upper Arm Muscle, Open Approach (ICD-10-PCS; principal; 2021-06-25)
PROC: 02HV33Z Insertion of Infusion Device into Superior Vena Cava, Percutaneous Approach (ICD-10-PCS; 2021-06-26)
DX: T81.49XA Infection following a procedure, other surgical site, initial encounter (principal); E43 Unspecified severe protein-calorie malnutrition; Z68.43 Body mass index [BMI] 50.0-59.9, adult; E88.09 Other disorders of plasma-protein metabolism, not elsewhere classified; K31.84 Gastroparesis; Y83.8 Other surgical procedures as the cause of abnormal reaction of the patient, or of later complication, without mention of misadventure at the time of the procedure; D64.9 Anemia, unspecified; E87.8 Other disorders of electrolyte and fluid balance, not elsewhere classified; E83.41 Hypermagnesemia; R74.01 Elevation of levels of liver transaminase levels; E03.9 Hypothyroidism, unspecified; F32.A Depression, unspecified; M25.569 Pain in unspecified knee; G89.29 Other chronic pain; I10 Essential (primary) hypertension; E11.9 Type 2 diabetes mellitus without complications; M54.12 Radiculopathy, cervical region; K57.30 Diverticulosis of large intestine without perforation or abscess without bleeding; F39 Unspecified mood [affective] disorder; F41.9 Anxiety disorder, unspecified; G43.909 Migraine, unspecified, not intractable, without status migrainosus; E66.01 Morbid (severe) obesity due to excess calories; Y92.89 Other specified places as the place of occurrence of the external cause; Z88.1 Allergy status to other antibiotic agents; Z80.1 Family history of malignant neoplasm of trachea, bronchus and lung; Z88.8 Allergy status to other drugs, medicaments and biological substances; Z90.49 Acquired absence of other specified parts of digestive tract

== ENCOUNTER → 2021-07-07 | Outpatient (CLI) | payer OTHER ==
[~2021-07-07] MED LIST changes: +CEFEPIME HYDROCH2 GM IV; +CEFEPIME1 GM/50 ML IV; +CEFEPIME2 GM/100 M IV; +CLONIDINE HCL0.2 MG PO; +PERCOCET 5-3251 EACH PO
== END ==
LOC: WOUNDCARE 00:54
PROVIDERS: ATTEND Surgery
DX: T81.42XA Infection following a procedure, deep incisional surgical site, initial encounter (principal); K21.9 Gastro-esophageal reflux disease without esophagitis; E03.9 Hypothyroidism, unspecified; G43.909 Migraine, unspecified, not intractable, without status migrainosus; F41.9 Anxiety disorder, unspecified; F32.9 Major depressive disorder, single episode, unspecified; Z79.899 Other long term (current) drug therapy; Z98.890 Other specified postprocedural states; Z93.1 Gastrostomy status; Y83.8 Other surgical procedures as the cause of abnormal reaction of the patient, or of later complication, without mention of misadventure at the time of the procedure; Y92.238 Other place in hospital as the place of occurrence of the external cause

== ENCOUNTER → 2021-07-13 | Outpatient (CLI) | payer OTHER | END | disposition home or self-care (01) | LOC: ORTHO 01:14 | PROVIDERS: ATTEND Orthopaedic Surgery | DX: S42.301D Unspecified fracture of shaft of humerus, right arm, subsequent encounter for fracture with routine healing (principal); X58.XXXD Exposure to other specified factors, subsequent encounter ==

== ENCOUNTER → 2021-07-14 | Outpatient (CLI) | payer OTHER | LOC: WOUNDCARE 00:39 | PROVIDERS: ATTEND Surgery | DX: T81.42XD Infection following a procedure, deep incisional surgical site, subsequent encounter (principal); K21.9 Gastro-esophageal reflux disease without esophagitis; E03.9 Hypothyroidism, unspecified; G43.909 Migraine, unspecified, not intractable, without status migrainosus; F41.9 Anxiety disorder, unspecified; F32.9 Major depressive disorder, single episode, unspecified; Z79.899 Other long term (current) drug therapy; Z98.890 Other specified postprocedural states; Y83.8 Other surgical procedures as the cause of abnormal reaction of the patient, or of later complication, without mention of misadventure at the time of the procedure ==

== ENCOUNTER → 2021-07-15 | Outpatient (CLI) | payer OTHER | LOC: WOUNDCARE 14:11 | PROVIDERS: ATTEND Nurse Practitioner Family | DX: T81.42XA Infection following a procedure, deep incisional surgical site, initial encounter (principal); K21.9 Gastro-esophageal reflux disease without esophagitis; E03.9 Hypothyroidism, unspecified; G43.909 Migraine, unspecified, not intractable, without status migrainosus; F41.9 Anxiety disorder, unspecified; F32.9 Major depressive disorder, single episode, unspecified; Z79.899 Other long term (current) drug therapy; Z98.890 Other specified postprocedural states; Y83.8 Other surgical procedures as the cause of abnormal reaction of the patient, or of later complication, without mention of misadventure at the time of the procedure ==

== ENCOUNTER 2021-12-13 23:08 | Emergency (ER) | payer OTHER ==
[~2021-12-13] VITALS: Ht 157.4 cm; Wt 122.9 kg
[2021-12-14 00:25] LABS: BASO # 0.1 10*3/uL (0.0-0.1); BASO % 0.4 % (0.0-1.0); EOS # 0.1 10*3/uL (0.0-0.4); EOS % 1.1 % (1.0-4.0); HEMATOCRIT 44.1 % (37.0-47.0); LYMPH # 3.5 10*3/uL (1.3-4.4); LYMPH % 29.8 % (27.0-41.0); MEAN CELL VOLUME 82.4 fl (81.0-99.0); MEAN PLATELET VOLUME 10.3 fl (9.6-12.3); MONO # 0.6 10*3/uL (0.1-1.0); MONO % 5.1 % (3.0-9.0); NEUT # 7.4 10*3/uL (2.3-7.9); NEUT % 63.3 % (47.0-73.0); PLATELET COUNT AUTOMATED 267 10*3/uL (130-400); RED BLOOD COUNT 5.35 10*6/uL (4.10-5.10); RED CELL DISTRI WIDTH 14.1 % (0-14.5); WHITE BLOOD COUNT 11.7 10*3/uL (4.8-10.8)
[2021-12-14 00:43] LABS: ALKALINE PHOSPHATASE 72 U/L (45-117); BUN 10 mg/dl (7-24); CHLORIDE 109 mmol/L (98-107); CREATININE 0.85 mg/dL (0.55-1.02); LIPASE 104 U/L (73-393); POTASSIUM 3.3 mmol/L (3.5-5.1); SGOT/AST 10 IU/L (3-35); SGPT/ALT 16 U/L (12-78); SODIUM 137 mmol/L (136-145); TOTAL PROTEIN 7.5 gm/dL (6.4-8.2)
[2021-12-14 03:47] LABS: BILIRUBIN Negative (Negative); BLOOD Trace-Lysed (Negative); CLARITY Cloudy (Clear); COLOR Yellow (Yellow); GLUCOSE Negative (Negative); KETONE Negative (Negative); LEUKO ESTERASE 3+ (Negative); NITRITE Negative (Negative); PH 5.5 (4.5-8.0)
[2021-12-14 04:03] VITALS: BP 153/80
[2021-12-14 04:03] LABS: BACTERIA 3+; CALCIUM OXALATE CRYSTALS TNTC; EPITHELIAL CELLS TNTC
[2021-12-14] MEDS ORDERED: PROTONIX40 MG PO (05:33)
[2021-12-14] MEDS ORDERED: MACROBID100 M1 PO (05:33)
== END 2021-12-14 06:15 | disposition home or self-care (01) ==
LOC: ED 23:08
PROVIDERS: Emergency Medicine
DX: N39.0 Urinary tract infection, site not specified (principal); K29.70 Gastritis, unspecified, without bleeding; I10 Essential (primary) hypertension

== ENCOUNTER 2022-03-11 07:05 | Emergency (ER) | payer OTHER ==
[~2022-03-11 07:05] MED LIST changes: +MACROBID100 M1 PO
== END 2022-03-11 07:28 | disposition left against medical advice (07) ==
LOC: ED 07:05
DX: Z53.21 Procedure and treatment not carried out due to patient leaving prior to being seen by health care provider (principal)

== ENCOUNTER 2022-04-08 11:46 | Emergency (ER) | payer OTHER ==
[~2022-04-08] VITALS: Ht 157.4 cm; Wt 113.4 kg
[2022-04-08 11:48] VITALS: BP 150/76
== END 2022-04-08 14:13 | disposition home or self-care (01) ==
LOC: ED 11:46
DX: M79.601 Pain in right arm (principal); Z88.1 Allergy status to other antibiotic agents; Z88.8 Allergy status to other drugs, medicaments and biological substances; Z79.2 Long term (current) use of antibiotics; Z79.899 Other long term (current) drug therapy; Z90.89 Acquired absence of other organs; Z90.49 Acquired absence of other specified parts of digestive tract; Z98.890 Other specified postprocedural states

== ENCOUNTER 2022-08-08 13:53 | Emergency (ER) | payer OTHER ==
[~2022-08-08] VITALS: Ht 157.4 cm; Wt 117.9 kg
[2022-08-08 14:36] VITALS: BP 174/114
[2022-08-08] MEDS ORDERED: 'XANAX1 MG PO (14:49)
[2022-08-08] MEDS ORDERED: PRISTIQ100 MG PO (14:53)
[2022-08-08 15:11] LABS: BASO # 0.1 10*3/uL (0.0-0.1); BASO % 0.8 % (0.0-1.0); EOS # 0.2 10*3/uL (0.0-0.4); EOS % 2.6 % (1.0-4.0); HEMATOCRIT 43.5 % (37.0-47.0); LYMPH # 3.2 10*3/uL (1.3-4.4); MEAN CELL VOLUME 85.6 fl (81.0-99.0); MEAN CORPUSCULAR HGB 28.9 pg (27.0-31.0); MEAN CORPUSCULAR HGB CONC 33.8 g/dl (33.0-37.0); MEAN PLATELET VOLUME 10.5 fl (9.6-12.3); MONO # 0.5 10*3/uL (0.1-1.0); NEUT # 4.8 10*3/uL (2.3-7.9); NEUT % 54.4 % (47.0-73.0); PLATELET COUNT AUTOMATED 239 10*3/uL (130-400); RED BLOOD COUNT 5.08 10*6/uL (4.10-5.10); RED CELL DISTRI WIDTH 13.2 % (0-14.5); WHITE BLOOD COUNT 8.8 10*3/uL (4.8-10.8)
[2022-08-08 15:35] LABS: ALKALINE PHOSPHATASE 67 U/L (46-116); BUN 9 mg/dl (9-23); CHLORIDE 107 mmol/L (98-107); LIPASE 30 U/L (12-53); POTASSIUM 3.7 mmol/L (3.4-5.1); SGPT/ALT 7 U/L (10-49); TOTAL PROTEIN 6.9 gm/dL (6.0-8.0)
[2022-08-08 17:18] LABS: BILIRUBIN Negative (Negative); BLOOD 1+ (Negative); CLARITY Clear (Clear); COLOR Yellow (Yellow); GLUCOSE Negative (Negative); KETONE Negative (Negative); LEUKO ESTERASE Negative (Negative); NITRITE Negative (Negative); SPECIFIC GRAVITY <= 1.005 (1.001-1.030); UROBILINOGEN 0.2 E.U./dl (0.0-1.0)
[2022-08-08 17:24] LABS: URINE AMPHETAMINES Negative (1000ng/ml); URINE BARBITURATES Negative (200ng/ml); URINE BENZODIAZEPINES Negative (200ng/ml); URINE CANNABINOIDS (THC) Negative (50ng/ml); URINE COCAINE Positive (300ng/ml); URINE METHADONE Negative (300ng/ml); URINE OPIATES Negative (300ng/ml); URINE PHENCYCLIDINE Negative (25ng/ml)
[2022-08-08 17:25] LABS: BACTERIA 2+; WBC 0-2 wbc/hpf (0-5)
[2022-08-08 17:26] LABS: HYALINE CAST 0-2
[2022-08-08 17:27] LABS: CALCIUM OXALATE CRYSTALS 1+
== END 2022-08-08 17:32 | disposition home or self-care (01) ==
LOC: ED 13:53
PROVIDERS: Student in an Organized Health Care Education/Training Program
DX: B34.9 Viral infection, unspecified (principal); Z88.1 Allergy status to other antibiotic agents; Z88.8 Allergy status to other drugs, medicaments and biological substances; Z90.89 Acquired absence of other organs; Z90.49 Acquired absence of other specified parts of digestive tract; Z98.890 Other specified postprocedural states; Z79.899 Other long term (current) drug therapy

== ENCOUNTER 2023-03-22 13:14 | Emergency (ER) | payer OTHER ==
[~2023-03-22] VITALS: Ht 157.4 cm
[~2023-03-22 13:14] MED LIST changes: +'XANAX1 MG PO
[2023-03-22 13:26] VITALS: BP 142/78
[2023-03-22 15:58] LABS: BASO # 0.1 10*3/uL (0.0-0.1); BASO % 0.8 % (0.0-1.0); EOS # 0.1 10*3/uL (0.0-0.4); EOS % 1.1 % (1.0-4.0); HEMATOCRIT 44.3 % (37.0-47.0); LYMPH # 3.1 10*3/uL (1.3-4.4); LYMPH % 34.9 % (27.0-41.0); MEAN CELL VOLUME 84.2 fl (81.0-99.0); MEAN CORPUSCULAR HGB 29.3 pg (27.0-31.0); MEAN CORPUSCULAR HGB CONC 34.8 g/dl (33.0-37.0); MEAN PLATELET VOLUME 10.5 fl (9.6-12.3); MONO # 0.6 10*3/uL (0.1-1.0); MONO % 6.3 % (3.0-9.0); NEUT % 56.5 % (47.0-73.0); PLATELET COUNT AUTOMATED 248 10*3/uL (130-400); RED BLOOD COUNT 5.26 10*6/uL (4.10-5.10); RED CELL DISTRI WIDTH 12.7 % (0-14.5); WHITE BLOOD COUNT 8.9 10*3/uL (4.8-10.8)
[2023-03-22 16:44] LABS: ALKALINE PHOSPHATASE 59 U/L (46-116); BUN 9 mg/dl (9-23); CHLORIDE 106 mmol/L (98-107); LIPASE 29 U/L (12-53); POTASSIUM 3.4 mmol/L (3.4-5.1); SGPT/ALT 13 U/L (10-49); TOTAL PROTEIN 7.1 gm/dL (6.0-8.0)
[2023-03-22] MEDS ORDERED: ONDANSETRON4 MG SL (17:04)
[2023-03-22] MEDS ORDERED: BENZONATATE100 M1 PO (17:04)
== END 2023-03-22 17:20 | disposition home or self-care (01) ==
LOC: ED 13:14
PROVIDERS: Physician Assistant Medical
DX: J06.9 Acute upper respiratory infection, unspecified (principal); G43.909 Migraine, unspecified, not intractable, without status migrainosus; F32.A Depression, unspecified; K21.9 Gastro-esophageal reflux disease without esophagitis; I10 Essential (primary) hypertension; Z88.1 Allergy status to other antibiotic agents; Z88.8 Allergy status to other drugs, medicaments and biological substances; Z90.49 Acquired absence of other specified parts of digestive tract; Z90.89 Acquired absence of other organs; Z98.890 Other specified postprocedural states; Z20.822 Contact with and (suspected) exposure to COVID-19

== ENCOUNTER 2023-04-17 16:03 | Emergency (ER) | payer OTHER ==
[~2023-04-17] VITALS: Ht 157.4 cm; Wt 126.1 kg
[~2023-04-17 16:03] MED LIST changes: +BENZONATATE100 M1 PO; +ONDANSETRON4 MG SL
[2023-04-17 16:37] VITALS: BP 179/99
[2023-04-17 18:13] LABS: BASO # 0.1 10*3/uL (0.0-0.1); BASO % 0.5 % (0.0-1.0); EOS # 0.1 10*3/uL (0.0-0.4); EOS % 1.4 % (1.0-4.0); HEMATOCRIT 45.2 % (37.0-47.0); LYMPH # 1.7 10*3/uL (1.3-4.4); LYMPH % 16.9 % (27.0-41.0); MEAN CELL VOLUME 85.8 fl (81.0-99.0); MEAN CORPUSCULAR HGB 29.6 pg (27.0-31.0); MEAN CORPUSCULAR HGB CONC 34.5 g/dl (33.0-37.0); MEAN PLATELET VOLUME 10.2 fl (9.6-12.3); MONO # 0.5 10*3/uL (0.1-1.0); MONO % 5.2 % (3.0-9.0); NEUT # 7.4 10*3/uL (2.3-7.9); NEUT % 75.7 % (47.0-73.0); PLATELET COUNT AUTOMATED 250 10*3/uL (130-400); RED BLOOD COUNT 5.27 10*6/uL (4.10-5.10); RED CELL DISTRI WIDTH 12.5 % (0-14.5); WHITE BLOOD COUNT 9.8 10*3/uL (4.8-10.8)
[2023-04-17 18:39] LABS: ALKALINE PHOSPHATASE 60 U/L (46-116); BUN 9 mg/dl (9-23); CHLORIDE 111 mmol/L (98-107); POTASSIUM 3.5 mmol/L (3.4-5.1); SGPT/ALT 9 U/L (10-49); TOTAL PROTEIN 7.4 gm/dL (6.0-8.0)
[2023-04-17] MEDS ORDERED: PREDNISONE50 MG PO (20:32)
[2023-04-17] MEDS ORDERED: ZITHROMAX250 MG PO (20:32)
[2023-04-17] MEDS ORDERED: ROBITUSSIN COU237 M3 PO (20:37)
== END 2023-04-17 20:48 | disposition home or self-care (01) ==
LOC: ED 16:03
PROVIDERS: Nurse Practitioner Family
DX: J40 Bronchitis, not specified as acute or chronic (principal); G43.909 Migraine, unspecified, not intractable, without status migrainosus; F32.A Depression, unspecified; K21.9 Gastro-esophageal reflux disease without esophagitis; I10 Essential (primary) hypertension; Z88.1 Allergy status to other antibiotic agents; Z88.8 Allergy status to other drugs, medicaments and biological substances; Z90.49 Acquired absence of other specified parts of digestive tract; Z90.89 Acquired absence of other organs; Z98.890 Other specified postprocedural states

== ENCOUNTER 2023-08-29 11:55 | Emergency (ER) | payer OTHER ==
[~2023-08-29] VITALS: Ht 157.4 cm; Wt 136.1 kg
[~2023-08-29 11:55] MED LIST changes: +PREDNISONE50 MG PO; +ROBITUSSIN COU237 M3 PO
[2023-08-29 12:01] VITALS: BP 135/70
== END 2023-08-29 13:32 | disposition home or self-care (01) ==
LOC: ED 11:55
DX: S20.212A Contusion of left front wall of thorax, initial encounter (principal); S70.02XA Contusion of left hip, initial encounter; F41.9 Anxiety disorder, unspecified; E78.00 Pure hypercholesterolemia, unspecified; E83.41 Hypermagnesemia; I10 Essential (primary) hypertension; E88.09 Other disorders of plasma-protein metabolism, not elsewhere classified; D64.9 Anemia, unspecified; F32.A Depression, unspecified; Z86.718 Personal history of other venous thrombosis and embolism; E03.9 Hypothyroidism, unspecified; G43.909 Migraine, unspecified, not intractable, without status migrainosus; K21.9 Gastro-esophageal reflux disease without esophagitis; Z88.1 Allergy status to other antibiotic agents; Z88.8 Allergy status to other drugs, medicaments and biological substances; Z98.890 Other specified postprocedural states; Z90.89 Acquired absence of other organs; Z90.49 Acquired absence of other specified parts of digestive tract; W19.XXXA Unspecified fall, initial encounter; Y93.89 Activity, other specified; Y92.89 Other specified places as the place of occurrence of the external cause; Y99.8 Other external cause status

== ENCOUNTER 2023-10-02 14:17 | Emergency (ER) | payer OTHER ==
[~2023-10-02] VITALS: Ht 157.4 cm; Wt 127.0 kg
[2023-10-02] MEDS ORDERED: ACETAMINOPHEN 325 MG TAB PO ONE (14:20)
[2023-10-02] MEDS ORDERED: CEPHALEXIN500 M1 PO (15:27)
== END 2023-10-02 15:30 ==
LOC: ED 14:17
DX: S01.112A Laceration without foreign body of left eyelid and periocular area, initial encounter (principal); W20.8XXA Other cause of strike by thrown, projected or falling object, initial encounter; Y93.89 Activity, other specified; Y92.89 Other specified places as the place of occurrence of the external cause; Y99.8 Other external cause status; Z88.1 Allergy status to other antibiotic agents; Z88.8 Allergy status to other drugs, medicaments and biological substances; Z79.2 Long term (current) use of antibiotics; Z79.899 Other long term (current) drug therapy; Z90.89 Acquired absence of other organs; Z90.49 Acquired absence of other specified parts of digestive tract; Z98.890 Other specified postprocedural states; F41.9 Anxiety disorder, unspecified

== ENCOUNTER 2023-10-04 17:10 | Emergency (ER) | payer OTHER ==
[~2023-10-04] VITALS: Ht 157.4 cm; Wt 127.0 kg
[2023-10-04 17:18] VITALS: BP 162/96
[2023-10-04] MEDS ORDERED: Motrin,Rufen800 MG PO (18:43)
[2023-10-04] MEDS ORDERED: ONDANSETRON4 MG SL (18:43)
[2023-10-04] MEDS ORDERED: Ondansetron Hydrochloride 4 MG TAB SL ONE (18:45)
[2023-10-04] MEDS ORDERED: Ketorolac Tromethamine 60 MG/2 ML VIAL IM ONE (18:45)
== END 2023-10-04 19:33 | disposition home or self-care (01) ==
LOC: ED 17:10
DX: S00.12XA Contusion of left eyelid and periocular area, initial encounter (principal); S09.8XXA Other specified injuries of head, initial encounter; F41.9 Anxiety disorder, unspecified; E78.00 Pure hypercholesterolemia, unspecified; E83.41 Hypermagnesemia; I10 Essential (primary) hypertension; E88.09 Other disorders of plasma-protein metabolism, not elsewhere classified; D64.9 Anemia, unspecified; G43.909 Migraine, unspecified, not intractable, without status migrainosus; E03.9 Hypothyroidism, unspecified; F32.A Depression, unspecified; Z88.1 Allergy status to other antibiotic agents; Z88.8 Allergy status to other drugs, medicaments and biological substances; Z86.718 Personal history of other venous thrombosis and embolism; Z98.890 Other specified postprocedural states; Z90.49 Acquired absence of other specified parts of digestive tract; Z90.89 Acquired absence of other organs; Y08.89XA Assault by other specified means, initial encounter; Y93.89 Activity, other specified; Y92.89 Other specified places as the place of occurrence of the external cause; Y99.8 Other external cause status

== ENCOUNTER 2023-11-11 23:44 | Emergency (ER) | payer OTHER ==
[~2023-11-11] VITALS: Ht 157.4 cm; Wt 136.1 kg
[2023-11-12 00:10] LABS: BASO # 0.1 10*3/uL (0.0-0.1); BASO % 0.6 % (0.0-1.0); EOS # 0.2 10*3/uL (0.0-0.4); EOS % 1.6 % (1.0-4.0); HEMATOCRIT 47.7 % (37.0-47.0); LYMPH # 3.9 10*3/uL (1.3-4.4); MEAN CELL VOLUME 85.8 fl (81.0-99.0); MEAN CORPUSCULAR HGB 28.4 pg (27.0-31.0); MEAN CORPUSCULAR HGB CONC 33.1 g/dl (33.0-37.0); MEAN PLATELET VOLUME 10.1 fl (9.6-12.3); MONO # 0.7 10*3/uL (0.1-1.0); MONO % 5.4 % (3.0-9.0); NEUT # 7.4 10*3/uL (2.3-7.9); NEUT % 59.9 % (47.0-73.0); PLATELET COUNT AUTOMATED 308 10*3/uL (130-400); RED BLOOD COUNT 5.56 10*6/uL (4.10-5.10); RED CELL DISTRI WIDTH 12.6 % (0-14.5); WHITE BLOOD COUNT 12.3 10*3/uL (4.8-10.8)
[2023-11-12 00:21] LABS: ACT PARTIAL THROMBO TIME 30.5 SECONDS (20.0-32.1)
[2023-11-12 00:37] LABS: ALKALINE PHOSPHATASE 63 U/L (46-116); BUN 13 mg/dl (9-23); CHLORIDE 107 mmol/L (98-107); POTASSIUM 3.5 mmol/L (3.4-5.1); SGPT/ALT 16 U/L (5-49); TOTAL PROTEIN 7.4 gm/dL (6.0-8.0)
[2023-11-12] MEDS ORDERED: Pantoprazole Sodium 40 MG VIAL IV ONE (02:40)
[2023-11-12 04:05] VITALS: BP 169/86
[2023-11-12] MEDS ORDERED: Ondansetron Hydrochloride 4 MG/2 ML VIAL IV ONE (05:05)
[2023-11-12] MEDS ORDERED: MEPERIDINE HYDROCHLORIDE 25 MG/1 ML VIAL IM ONE (05:05)
[2023-11-12] MEDS ORDERED: Ondansetron Hydrochloride 4 MG TAB SL ONE (05:05)
[2023-11-12] MEDS ORDERED: OMEPRAZOLE40 MG PO (05:15)
== END 2023-11-12 05:24 | disposition home or self-care (01) ==
LOC: ED 23:44
PROVIDERS: Internal Medicine
DX: R10.10 Upper abdominal pain, unspecified (principal); D72.829 Elevated white blood cell count, unspecified; K22.6 Gastro-esophageal laceration-hemorrhage syndrome; G43.909 Migraine, unspecified, not intractable, without status migrainosus; F32.A Depression, unspecified; K21.9 Gastro-esophageal reflux disease without esophagitis; I10 Essential (primary) hypertension; Z86.718 Personal history of other venous thrombosis and embolism; Z88.1 Allergy status to other antibiotic agents; Z88.8 Allergy status to other drugs, medicaments and biological substances; Z98.890 Other specified postprocedural states; Z90.89 Acquired absence of other organs; Z90.49 Acquired absence of other specified parts of digestive tract

== ENCOUNTER 2024-01-19 14:55 | Emergency (ER) | payer OTHER ==
[~2024-01-19] VITALS: Ht 157.4 cm; Wt 127.0 kg
[~2024-01-19 14:55] MED LIST changes: +OMEPRAZOLE40 MG PO
[2024-01-19 15:04] VITALS: BP 169/119
[2024-01-19] MEDS ORDERED: HYDROCODONE-AC1 EAC1 PO (15:25)
[2024-01-19] MEDS ORDERED: SEPTDS PO (15:25)
[2024-01-19] MEDS ORDERED: CEPHALEXIN500 M1 PO (15:25)
== END 2024-01-19 15:29 | disposition home or self-care (01) ==
LOC: ED 14:55
DX: S31.109A Unspecified open wound of abdominal wall, unspecified quadrant without penetration into peritoneal cavity, initial encounter (principal); L03.311 Cellulitis of abdominal wall; F41.9 Anxiety disorder, unspecified; E78.00 Pure hypercholesterolemia, unspecified; E83.41 Hypermagnesemia; I10 Essential (primary) hypertension; D64.9 Anemia, unspecified; F32.A Depression, unspecified; Z86.718 Personal history of other venous thrombosis and embolism; G43.909 Migraine, unspecified, not intractable, without status migrainosus; K21.9 Gastro-esophageal reflux disease without esophagitis; E03.9 Hypothyroidism, unspecified; Z88.1 Allergy status to other antibiotic agents; Z88.8 Allergy status to other drugs, medicaments and biological substances; Z90.49 Acquired absence of other specified parts of digestive tract; Z90.89 Acquired absence of other organs; Z98.890 Other specified postprocedural states; X58.XXXA Exposure to other specified factors, initial encounter; Y93.89 Activity, other specified; Y92.89 Other specified places as the place of occurrence of the external cause; Y99.8 Other external cause status

== ENCOUNTER 2024-02-01 20:59 | Emergency (ER) | payer OTHER ==
[~2024-02-01] VITALS: Ht 157.4 cm; Wt 139.3 kg
[2024-02-01 21:02] VITALS: BP 172/97
[2024-02-01] MEDS ORDERED: fentaNYL CITRATE 100 MCG/2 ML VIAL IV ONE (21:25)
[2024-02-01] MEDS ORDERED: Acetaminophen/Hydrocodone 5 MG/325 MG TABLET PO ONE (22:55)
== END 2024-02-01 23:12 | disposition home or self-care (01) ==
LOC: ED 20:59
DX: S82.831A Other fracture of upper and lower end of right fibula, initial encounter for closed fracture (principal); F41.9 Anxiety disorder, unspecified; I10 Essential (primary) hypertension; E03.9 Hypothyroidism, unspecified; G43.909 Migraine, unspecified, not intractable, without status migrainosus; E66.01 Morbid (severe) obesity due to excess calories; F32.A Depression, unspecified; Z88.1 Allergy status to other antibiotic agents; Z88.8 Allergy status to other drugs, medicaments and biological substances; Z79.899 Other long term (current) drug therapy; Z79.2 Long term (current) use of antibiotics; Z86.718 Personal history of other venous thrombosis and embolism; Z90.89 Acquired absence of other organs; Z90.49 Acquired absence of other specified parts of digestive tract; Z98.890 Other specified postprocedural states; W01.0XXA Fall on same level from slipping, tripping and stumbling without subsequent striking against object, initial encounter; Y93.01 Activity, walking, marching and hiking; Y92.480 Sidewalk as the place of occurrence of the external cause; Y99.8 Other external cause status

== ENCOUNTER 2024-02-19 21:12 | Emergency (ER) | payer OTHER ==
[~2024-02-19] VITALS: Ht 157.4 cm; Wt 131.5 kg
[2024-02-19] MEDS ORDERED: SODIUM CHLORIDE 0.9% 1,000 ML IV ONE (21:45)
[2024-02-19] MEDS ORDERED: Ondansetron Hydrochloride 4 MG/2 ML VIAL IV ONE (21:45)
[2024-02-19] MEDS ORDERED: HYDROmorphONE Hydrochloride 0.5 MG/0.5 ML SYRINGE IV ONE (21:45)
[2024-02-19] MEDS ORDERED: FAMOTIDINE 50 ML IV ONE (21:50)
[2024-02-19 22:09] LABS: BASO # 0.1 10*3/uL (0.0-0.1); BASO % 0.6 % (0.0-1.0); EOS # 0.2 10*3/uL (0.0-0.4); HEMATOCRIT 46.4 % (37.0-47.0); LYMPH # 3.4 10*3/uL (1.3-4.4); MEAN CORPUSCULAR HGB 29.5 pg (27.0-31.0); MEAN CORPUSCULAR HGB CONC 34.7 g/dl (33.0-37.0); MEAN PLATELET VOLUME 10.9 fl (9.6-12.3); MONO # 0.6 10*3/uL (0.1-1.0); NEUT # 5.7 10*3/uL (2.3-7.9); NEUT % 57.1 % (47.0-73.0); PLATELET COUNT AUTOMATED 260 10*3/uL (130-400); RED BLOOD COUNT 5.46 10*6/uL (4.10-5.10); RED CELL DISTRI WIDTH 12.7 % (0-14.5); WHITE BLOOD COUNT 9.9 10*3/uL (4.8-10.8)
[2024-02-19 22:29] LABS: ALKALINE PHOSPHATASE 72 U/L (46-116); BUN 8 mg/dl (9-23); CHLORIDE 109 mmol/L (98-107); LIPASE 30 U/L (12-53); POTASSIUM 3.7 mmol/L (3.4-5.1); SGPT/ALT 13 U/L (5-49); TOTAL PROTEIN 7.1 gm/dL (6.0-8.0)
[2024-02-19] MEDS ORDERED: HYDROmorphONE Hydrochloride 0.5 MG/0.5 ML SYRINGE IM ONE (22:30)
[2024-02-19] MEDS ORDERED: Ondansetron Hydrochloride 4 MG TAB SL ONE (22:30)
[2024-02-20 00:38] LABS: BILIRUBIN Negative (Negative); BLOOD Negative (Negative); CLARITY Clear (Clear); COLOR Yellow (Yellow); GLUCOSE Negative (Negative); KETONE Trace (Negative); LEUKO ESTERASE Negative (Negative); NITRITE Negative (Negative); SPECIFIC GRAVITY >= 1.030 (1.001-1.030)
[2024-02-20 00:52] LABS: FINE GRANULAR CAST 0-2; MUCOUS 2+; RBC 0-2 rbc/hpf (0-2)
[2024-02-20 01:45] VITALS: BP 150/98
[2024-02-20] MEDS ORDERED: Ondansetron4 MG PO (01:54)
[2024-02-20] MEDS ORDERED: Ondansetron Hydrochloride 4 MG TAB SL ONE (01:55)
[2024-02-20] MEDS ORDERED: Ketorolac Tromethamine 60 MG/2 ML VIAL IM ONE (01:55)
== END 2024-02-20 02:29 | disposition home or self-care (01) ==
LOC: ED 21:12
PROVIDERS: Nurse Practitioner Family
DX: B34.9 Viral infection, unspecified (principal); R11.2 Nausea with vomiting, unspecified; R10.12 Left upper quadrant pain; F41.9 Anxiety disorder, unspecified; E78.00 Pure hypercholesterolemia, unspecified; E83.41 Hypermagnesemia; I10 Essential (primary) hypertension; E88.09 Other disorders of plasma-protein metabolism, not elsewhere classified; D64.9 Anemia, unspecified; F32.A Depression, unspecified; E03.9 Hypothyroidism, unspecified; G43.909 Migraine, unspecified, not intractable, without status migrainosus; K21.9 Gastro-esophageal reflux disease without esophagitis; Z88.1 Allergy status to other antibiotic agents; Z88.8 Allergy status to other drugs, medicaments and biological substances; Z86.718 Personal history of other venous thrombosis and embolism; Z90.89 Acquired absence of other organs; Z90.49 Acquired absence of other specified parts of digestive tract; Z98.890 Other specified postprocedural states

== ENCOUNTER 2024-03-29 19:14 | Emergency (ER) | payer OTHER ==
[~2024-03-29] VITALS: Ht 157.4 cm; Wt 130.7 kg
[~2024-03-29 19:14] MED LIST changes: +Ondansetron4 MG PO
[2024-03-29 19:45] LABS: BASO # 0.1 10*3/uL (0.0-0.1); BASO % 0.7 % (0.0-1.0); EOS # 0.1 10*3/uL (0.0-0.4); EOS % 1.3 % (1.0-4.0); LYMPH # 2.7 10*3/uL (1.3-4.4); LYMPH % 32.7 % (27.0-41.0); MEAN CELL VOLUME 87.5 fl (81.0-99.0); MEAN CORPUSCULAR HGB 28.9 pg (27.0-31.0); MEAN CORPUSCULAR HGB CONC 33.1 g/dl (33.0-37.0); MEAN PLATELET VOLUME 11.1 fl (9.6-12.3); MONO # 0.5 10*3/uL (0.1-1.0); MONO % 6.3 % (3.0-9.0); NEUT # 4.8 10*3/uL (2.3-7.9); NEUT % 58.8 % (47.0-73.0); PLATELET COUNT AUTOMATED 281 10*3/uL (130-400); RED CELL DISTRI WIDTH 13.1 % (0-14.5); WHITE BLOOD COUNT 8.3 10*3/uL (4.8-10.8)
[2024-03-29 20:11] LABS: ALKALINE PHOSPHATASE 62 U/L (46-116); BUN 9 mg/dl (9-23); CHLORIDE 111 mmol/L (98-107); CPK 74 U/L (34-171); POTASSIUM 3.6 mmol/L (3.4-5.1); SGPT/ALT 16 U/L (5-49); TOTAL PROTEIN 7.6 gm/dL (6.0-8.0)
[2024-03-29 20:12] LABS: ETHYL ALCOHOL < 3.0 mg/dl (<3)
[2024-03-29 21:12] LABS: BILIRUBIN Negative (Negative); BLOOD Trace-Intact (Negative); CLARITY Cloudy (Clear); COLOR Yellow (Yellow); GLUCOSE Negative (Negative); KETONE Trace (Negative); LEUKO ESTERASE Negative (Negative); NITRITE Negative (Negative); PH 5.5 (4.5-8.0); SPECIFIC GRAVITY >= 1.030 (1.001-1.030)
[2024-03-29 21:20] LABS: URINE AMPHETAMINES Negative (1000ng/ml); URINE BARBITURATES Negative (200ng/ml); URINE BENZODIAZEPINES Negative (200ng/ml); URINE CANNABINOIDS (THC) Negative (50ng/ml); URINE COCAINE Positive (300ng/ml); URINE METHADONE Negative (300ng/ml); URINE OPIATES Negative (300ng/ml); URINE PHENCYCLIDINE Negative (25ng/ml)
[2024-03-29 21:22] LABS: BACTERIA 1+; CALCIUM OXALATE CRYSTALS Trace
[2024-03-30] MEDS ORDERED: ACETAMINOPHEN 325 MG TAB PO ONE (02:25)
[2024-03-30] MEDS ORDERED: ALPRAZolam 0.25 MG TAB PO ONE (02:35)
[2024-03-30] MEDS ORDERED: Ondansetron Hydrochloride 4 MG TAB PO ONE (08:35)
[2024-03-30 08:40] LABS: BUN 9 mg/dl (9-23); CHLORIDE 110 mmol/L (98-107); POTASSIUM 3.3 mmol/L (3.4-5.1)
[2024-03-30] MEDS ORDERED: IBUPROFEN 800 MG TAB PO ONE (10:50)
[2024-03-30] MEDS ORDERED: SUMATRIPTAN SUCCINATE 6 MG/0.5 ML VIAL IM ONE (11:55)
[2024-03-30] MEDS ORDERED: SUMATRIPTAN SUCCINATE 6 MG/0.5 ML VIAL SC ONE (12:00)
[2024-03-30 12:56] VITALS: BP 137/93
== END 2024-03-30 13:34 | disposition short-term general hospital (02) ==
LOC: ED 19:14
PROVIDERS: Internal Medicine
DX: F31.9 Bipolar disorder, unspecified (principal); Z20.822 Contact with and (suspected) exposure to COVID-19; F41.9 Anxiety disorder, unspecified; G43.909 Migraine, unspecified, not intractable, without status migrainosus; K21.9 Gastro-esophageal reflux disease without esophagitis; I10 Essential (primary) hypertension; Z86.718 Personal history of other venous thrombosis and embolism; Z88.1 Allergy status to other antibiotic agents; Z88.8 Allergy status to other drugs, medicaments and biological substances; Z90.49 Acquired absence of other specified parts of digestive tract; Z90.89 Acquired absence of other organs; Z98.890 Other specified postprocedural states; Z79.899 Other long term (current) drug therapy

== ENCOUNTER 2024-06-24 21:00 | Emergency (ER) | payer OTHER ==
[~2024-06-24] VITALS: Ht 167.6 cm; Wt 99.8 kg
[2024-06-24 21:14] VITALS: BP 153/83
[2024-06-24] MEDS ORDERED: methylPREDNISolone sod succ 125 MG VIAL IM ONE (23:15)
[2024-06-24] MEDS ORDERED: PREDNISONE20 M1 PO (23:26)
[2024-06-24] MEDS ORDERED: Acetaminophen/Hydrocodone 5 MG/325 MG TABLET PO ONE (23:35)
[2024-06-24] MEDS ORDERED: Ondansetron Hydrochloride 4 MG TAB SL ONE (23:35)
== END 2024-06-24 23:46 | disposition home or self-care (01) ==
LOC: ED 21:00
DX: S80.02XA Contusion of left knee, initial encounter (principal); S00.83XA Contusion of other part of head, initial encounter; J40 Bronchitis, not specified as acute or chronic; G43.909 Migraine, unspecified, not intractable, without status migrainosus; F32.A Depression, unspecified; K21.9 Gastro-esophageal reflux disease without esophagitis; I10 Essential (primary) hypertension; Z86.718 Personal history of other venous thrombosis and embolism; Z88.1 Allergy status to other antibiotic agents; Z88.8 Allergy status to other drugs, medicaments and biological substances; Z90.89 Acquired absence of other organs; Z90.49 Acquired absence of other specified parts of digestive tract; Z98.890 Other specified postprocedural states; W01.10XA Fall on same level from slipping, tripping and stumbling with subsequent striking against unspecified object, initial encounter; Y93.89 Activity, other specified; Y92.009 Unspecified place in unspecified non-institutional (private) residence as the place of occurrence of the external cause; Y99.8 Other external cause status

== ENCOUNTER 2024-06-25 14:29 | Emergency (ER) | payer OTHER ==
[~2024-06-25] VITALS: Ht 157.4 cm; Wt 99.8 kg
[~2024-06-25 14:29] MED LIST changes: +PREDNISONE20 M1 PO
[2024-06-25 15:04] VITALS: BP 178/90
[2024-06-25] MEDS ORDERED: Lidocaine Hydrochloride 30 ML VIAL SC ONE (15:40)
[2024-06-25 15:50] LABS: BASO % 0.1 % (0.0-1.0); HEMATOCRIT 44.9 % (37.0-47.0); MEAN CELL VOLUME 85.5 fl (81.0-99.0); MEAN CORPUSCULAR HGB CONC 33.9 g/dl (33.0-37.0); MEAN PLATELET VOLUME 10.6 fl (9.6-12.3); MONO # 0.4 10*3/uL (0.1-1.0); MONO % 3.6 % (3.0-9.0); NEUT # 7.9 10*3/uL (2.3-7.9); NEUT % 77.7 % (47.0-73.0); PLATELET COUNT AUTOMATED 305 10*3/uL (130-400); RED BLOOD COUNT 5.25 10*6/uL (4.10-5.10); RED CELL DISTRI WIDTH 12.1 % (0-14.5); WHITE BLOOD COUNT 10.1 10*3/uL (4.8-10.8)
[2024-06-25 16:08] LABS: BUN 14 mg/dl (9-23); CHLORIDE 109 mmol/L (98-107); POTASSIUM 3.9 mmol/L (3.4-5.1)
[2024-06-25 16:10] LABS: B-hCG (QUALITATIVE) NEGATIVE (NEGATIVE); ETHYL ALCOHOL < 3.0 mg/dl (<3)
[2024-06-25] MEDS ORDERED: ACETAMINOPHEN 325 MG TAB PO ONE (16:30)
== END 2024-06-25 17:04 ==
LOC: ED 14:29
PROVIDERS: Physician Assistant Medical
DX: S01.511A Laceration without foreign body of lip, initial encounter (principal); S01.411A Laceration without foreign body of right cheek and temporomandibular area, initial encounter; G43.909 Migraine, unspecified, not intractable, without status migrainosus; F32.A Depression, unspecified; K21.9 Gastro-esophageal reflux disease without esophagitis; I10 Essential (primary) hypertension; Z86.718 Personal history of other venous thrombosis and embolism; Z88.1 Allergy status to other antibiotic agents; Z88.8 Allergy status to other drugs, medicaments and biological substances; Z90.89 Acquired absence of other organs; Z98.890 Other specified postprocedural states; Z90.49 Acquired absence of other specified parts of digestive tract; Z79.899 Other long term (current) drug therapy; Y04.0XXA Assault by unarmed brawl or fight, initial encounter; Y93.89 Activity, other specified; Y92.89 Other specified places as the place of occurrence of the external cause; Y99.8 Other external cause status

== ENCOUNTER 2024-07-06 15:45 | Emergency (ER) | payer OTHER ==
[2024-07-06 16:00] VITALS: BP 169/101
[2024-07-06] MEDS ORDERED: AVPAK AZITHROM250 M1 PO (16:04)
[2024-07-06] MEDS ORDERED: BENZONATATE100 M1 PO (16:24)
== END 2024-07-06 16:35 | disposition home or self-care (01) ==
LOC: ED 15:45
DX: J40 Bronchitis, not specified as acute or chronic (principal); F32.A Depression, unspecified; R04.2 Hemoptysis; F41.9 Anxiety disorder, unspecified; I10 Essential (primary) hypertension; G43.909 Migraine, unspecified, not intractable, without status migrainosus; K21.9 Gastro-esophageal reflux disease without esophagitis; Z86.718 Personal history of other venous thrombosis and embolism; Z88.1 Allergy status to other antibiotic agents; Z88.8 Allergy status to other drugs, medicaments and biological substances; Z90.89 Acquired absence of other organs; Z90.49 Acquired absence of other specified parts of digestive tract; Z98.890 Other specified postprocedural states

== ENCOUNTER 2024-12-10 13:15 | Emergency (ER) | payer OTHER ==
[~2024-12-10 13:15] MED LIST changes: +AVPAK AZITHROM250 M1 PO
[2024-12-10 13:39] VITALS: BP 124/66
[2024-12-10] MEDS ORDERED: HYDROXYZINE PAM25 M1 PO (13:57)
== END 2024-12-10 16:21 | disposition home or self-care (01) ==
LOC: ED 13:15
DX: S20.211A Contusion of right front wall of thorax, initial encounter (principal); S70.11XA Contusion of right thigh, initial encounter; S40.811A Abrasion of right upper arm, initial encounter; G43.909 Migraine, unspecified, not intractable, without status migrainosus; F32.A Depression, unspecified; K21.9 Gastro-esophageal reflux disease without esophagitis; I10 Essential (primary) hypertension; Z86.718 Personal history of other venous thrombosis and embolism; Z86.16 Personal history of COVID-19; Z88.1 Allergy status to other antibiotic agents; Z88.8 Allergy status to other drugs, medicaments and biological substances; Z90.89 Acquired absence of other organs; Z98.890 Other specified postprocedural states; Z90.49 Acquired absence of other specified parts of digestive tract; Y08.89XA Assault by other specified means, initial encounter; Y93.89 Activity, other specified; Y92.149 Unspecified place in prison as the place of occurrence of the external cause; Y99.8 Other external cause status

== ENCOUNTER 2025-05-22 04:39 | Emergency (ER) | payer OTHER ==
[~2025-05-22] VITALS: Ht 157.4 cm; Wt 145.1 kg
[~2025-05-22 04:39] MED LIST changes: +CLONIDINE0.2 MG PO; +GABAPENTIN400 MG PO; +HYDROXYZINE PAM25 M1 PO; +LAMICTAL100 MG PO; +VRAYLAR1.5 MG PO
[2025-05-22 04:56] VITALS: BP 92/45
[2025-05-22] MEDS ORDERED: HURRICAINE PO (06:21)
[2025-05-22] MEDS ORDERED: MEDROL DOSEPAK4 MG PO (06:21)
[2025-05-22] MEDS ORDERED: ACID REDUCER10 MG PO (06:26)
== END 2025-05-22 06:33 | disposition home or self-care (01) ==
LOC: ED 04:39
DX: R13.19 Other dysphagia (principal); Z88.1 Allergy status to other antibiotic agents; Z88.8 Allergy status to other drugs, medicaments and biological substances; Z79.899 Other long term (current) drug therapy; Z90.89 Acquired absence of other organs; Z90.49 Acquired absence of other specified parts of digestive tract; Z98.890 Other specified postprocedural states; Z20.822 Contact with and (suspected) exposure to COVID-19